=== PATIENT | female | born 1970 | race Two or more races ===

== ENCOUNTER 2018-01-18 20:00 | Emergency (ER) | payer SELFPAY ==
[~2018-01-18] VITALS: Ht 162.6 cm; Wt 79.4 kg
[~2018-01-18 20:00] MED LIST: APRESOLINE10 MG ORAL; CIPRO500 MG PO; CIPROFLOXACIN500 M2 ORAL; COLACE100 MG ORAL; COREG6.25 MG ORAL; FLOMAX0.4 MG ORAL; HYDROCHLOROTHIA25 MG ORAL; IBUPROFEN600 MG ORAL; K-TAB10 MEQ PO; LISINOPRIL10 MG ORAL; METRONIDAZOLE500 MG ORAL; NORCO 5-325 TA1 EACH ORAL; NORCO 5-325 TA1 EACH PO; OMEPRAZOLE20 M3 ORAL; ONDANSETRON ODT4 MG ORAL; SENNA8.6 M3 PO; SLEEP AID25 M1 PO; SUMATRIPTAN SUC50 MG PO; SYNTHROID25 MCG ORAL; TENORMIN25 MG ORAL; TOPAMAX25 MG ORAL; TRAMADOL HCL50 MG ORAL
[2018-01-18 20:22] VITALS: BP 184/117
[2018-01-18] MEDS ORDERED: Isovue-300 100ml vial INJ PRN (21:00)
--- NOTE | 2018-01-18 21:06 | Emergency Room Report ---
History of Present Illness General Chief Complaint: Abdominal Pain Source: Patient Present Illness HPI Mrs. Ho is a 47 yo female who presents with severe generalized abdominal pain beginning this afternoon. Pain is aching and sharp with radiation to the back. Gradual onset. Pain is worse with ambulation. Patient has severe distention of abdomen. Last bowel movement was today. One episode of vomiting. Mild headache. She has history of hypertension. History of thyroidectomy, appendectomy, bilateral nephrectomy. Has not had menstrual bleeding in four years then recently had vaginal bleeding. Pain is 9/10 in abdomen. Allergies: Coded Allergies: MORPHINE (Verified Allergy, Severe, Shortness of Breath, 11/14/15) rash, swelling of tounge, and SOB Patient History Past Medical History: see triage record, old chart reviewed Past Surgical History: other - as per HPI Social History: Reports: drug use - according to EMR Last Menstrual Period: na Now: No Reviewed Nursing Documentation: PMH: Agreed; PSxH: Agreed Nursing Documentation-PMH Past Medical History: No History, Except For Hx Hypertension: Yes Hx Cancer: Yes - THYROIDECTOMY Hx Gastrointestinal Problems: No Hx Cerebrovascular Accident: No - KIDNEY STONES Review of Systems Constitutional: Denies: fever, malaise Gastrointestinal: Reports: abdominal pain, nausea, vomiting Neurological: Reports: headache All Other Systems: negative except mentioned in HPI Physical Exam Vital Signs Date Time Temp Pulse Resp B/P (MAP) Pulse Ox O2 Delivery O2 Flow Rate FiO2 01/18/18 20:33 98.1 91 18 215/150 98 Room Air Sp02 EP Interpretation: reviewed, normal General Appearance: no apparent distress, alert, GCS 15, non-toxic, mild distress, other - anxious, appears in severe pain Head: normocephalic, atraumatic Eyes: bilateral eye normal inspection ENT: hearing grossly normal, normal pharynx, no angioedema, normal voice Neck: full range of motion, supple/symm/no masses Respiratory: chest non-tender, lungs clear, normal breath sounds, speaking full sentences Cardiovascular #1: regular rate, rhythm, no edema Cardiovascular #2: 2+ dorsalis pedis (R), 2+ dorsalis pedis (L) Gastrointestinal: non tender, abnormal bowel sounds, distended, guarding Musculoskeletal: gait/station normal, normal range of motion, non-tender, calf tenderness Neurologic: alert, oriented x3, responsive, motor strength/tone normal, sensory intact, speech normal Psychiatric: judgement/insight normal, memory normal, anxious Skin: normal color, no rash, warm/dry, well hydrated Medical Decision Making Diagnostic Impression: Primary Impression: Hypertensive urgency Additional Impressions: Abdominal pain Constipation ER Course constipation leading to distention and abd pain, rx: golytely, no evidence of peritonitis or bowel obstruction, repeat bp 150/[address]/MRI/US Diagnostic Results CT/MRI/US Diagnostic Results : Impression vaginal cyst, persistent small renal stone, renal cysts no change, large amount of stool Last Vital Signs Date Time Temp Pulse Resp B/P (MAP) Pulse Ox O2 Delivery O2 Flow Rate FiO2 01/18/18 20:33 98.1 91 18 215/150 98 Room Air Patience Scruggs MD Jan 18, 2018 21:06
[2018-01-18 21:11] LABS: EOSINOPHILS % (AUTO) 3.2 % (0.0-3.0); HEMATOCRIT 40.1 % (37.0-47.0); HEMOGLOBIN 14.1 G/DL (12.0-16.0); LYMPHOCYTES % (AUTO) 31.3 % (20.0-45.0); MEAN CORPUSCULAR VOLUME 82 FL (80-99); MONOCYTES % (AUTO) 6.4 % (1.0-10.0); NEUTROPHILS % (AUTO) 58.1 % (45.0-75.0); PLATELET COUNT 414 K/UL (150-450); RED BLOOD COUNT 4.87 M/UL (4.20-5.40); RED CELL DISTRIBUTION WIDTH 12.2 % (11.6-14.8); WHITE BLOOD COUNT 10.2 K/UL (4.8-10.8)
[2018-01-18 21:13] LABS: APPEARANCE,URINE CLEAR; BILIRUBIN, URINE NEGATIVE (NEGATIVE); GLUCOSE, URINE (UA) NEGATIVE (NEGATIVE); KETONES,URINE NEGATIVE (NEGATIVE); LEUKOCYTE ESTERASE ,URINE 1+ (NEGATIVE); NITRITE,URINE NEGATIVE (NEGATIVE); PH,URINE 6 (4.5-8.0); PROTEIN,URINE 2+ (NEGATIVE); UROBILINOGEN,URINE NORMAL MG/DL (0.0-1.0)
[2018-01-18 21:14] LABS: COLOR,URINE YELLOW
[2018-01-18] MEDS ORDERED: HYDROmorphone 1mg/ml Carpuject IVP ONE ×2 (21:15→23:00)
[2018-01-18 21:29] LABS: ANION GAP 6 mmol/L (5-15); BLOOD UREA NITROGEN 15 mg/dL (7-18); CALCIUM 9.1 MG/DL (8.5-10.1); CARBON DIOXIDE 30 MMOL/L (21-32); CHLORIDE 106 MMOL/L (98-107); POTASSIUM 3.5 MMOL/L (3.5-5.1); SODIUM 142 MMOL/L (136-145)
[2018-01-18 21:33] LABS: ALANINE AMINOTRANSFERASE 45 U/L (12-78); ALBUMIN 3.8 G/DL (3.4-5.0); ALBUMIN/GLOBULIN RATIO 0.8 (1.0-2.7); ALKALINE PHOSPHATASE 99 U/L (46-116); ASPARTATE AMINO TRANSFERASE 22 U/L (15-37); BILIRUBIN,TOTAL 0.4 MG/DL (0.2-1.0)
[2018-01-18] MEDS ORDERED: GOLYTELY SOLU4000 ML PO (22:43)
[2018-01-18 22:54] VITALS: BP 215/150
--- NOTE | 2018-01-19 09:39 | Diagnostic Imaging Report ---
Indication: Abdominal pain Technique: Continuous helical transaxial imaging of the abdomen and pelvis was obtained from the lung bases to the pubic symphysis during intravenous contrast administration. Coronal 2-D reformats were also obtained. Study obtained in a Siemens sensation [address] Automatic Exposure Control was utilized. Total Dose length Product (DLP): 905.[address] Dose Index Volume (CTDIvol): 17.05 mGy Comparison: 06/08/2015 Findings: Partial visualization of the right breast implant noted. The lung bases are clear. Small hiatal hernia noted. Diffuse low-attenuation of the liver demonstrated consistent with fatty infiltration. The gallbladder and spleen, pancreas appear unremarkable. There are small hypodensities within the kidneys likely cysts although some are too small to characterize. Appendectomy noted. No free fluid or free air identified. Uterus noted. Urinary bladder is nondistended. In the left vaginal region there is a ovoid cystic focus measuring 2.5 x 1.2 cm unchanged from the last CT examination. IMPRESSION: Fatty liver. Renal cysts. Some are too small to characterize adequately Status post appendectomy Left-sided vaginal cyst nonspecific unchanged from 2016. The CT scanner at [facility] is accredited by the [employer] and the scans are performed using dose optimization techniques as appropriate to a performed exam including Automatic Exposure control.
== END 2018-01-18 22:54 | disposition home or self-care (01) ==
LOC: EMR 21:32
DX: I16.0 Hypertensive urgency (principal); R10.84 Generalized abdominal pain; K59.00 Constipation, unspecified; I10 Essential (primary) hypertension; Z85.850 Personal history of malignant neoplasm of thyroid; Z98.890 Other specified postprocedural states; Z87.442 Personal history of urinary calculi; Z88.5 Allergy status to narcotic agent
CPT/HCPCS: 36415; 74177; 80053; 81003; 83690; 84702; 85025; 87086; 96374; 96375; 99284; J1170; J2405; Q9967

== ENCOUNTER 2018-08-27 05:46 | Inpatient (IN) | payer MEDICAID ==
[2018-08-27] VITALS (8 sets, daily range): BP systolic 121–147; BP diastolic 69–109
[~2018-08-27] VITALS: Ht 162.6 cm; Wt 89.8 kg
[~2018-08-27 05:46] MED LIST changes: +GOLYTELY SOLU4000 ML PO
[2018-08-27] MEDS ORDERED: Ipratropium 0.02% Inh Soln 2.5ml UD HHN ONE (06:15)
[2018-08-27] MEDS ORDERED: Albuterol ud Inhalation HHN ONE (06:15)
[2018-08-27] MEDS ORDERED: Solu-MEDROL 125mg Inj IVP ONE (06:15)
[2018-08-27 06:26] LABS: EOSINOPHILS % (AUTO) 3.5 % (0.0-3.0); HEMATOCRIT 41.5 % (37.0-47.0); MEAN CORPUSCULAR VOLUME 79 FL (80-99); MONOCYTES % (AUTO) 8.4 % (1.0-10.0); NEUTROPHILS % (AUTO) 68.1 % (45.0-75.0); PLATELET COUNT 506 K/UL (150-450); RED BLOOD COUNT 5.24 M/UL (4.20-5.40); RED CELL DISTRIBUTION WIDTH 12.6 % (11.6-14.8); WHITE BLOOD COUNT 13.6 K/UL (4.8-10.8)
[2018-08-27 06:38] LABS: INR 0.9 (0.9-1.1)
[2018-08-27 06:39] LABS: ANION GAP 11 mmol/L (5-15); BLOOD UREA NITROGEN 14 mg/dL (7-18); CARBON DIOXIDE 27 MMOL/L (21-32); CHLORIDE 103 MMOL/L (98-107); CREATININE 0.8 MG/DL (0.55-1.30); POTASSIUM 4.2 MMOL/L (3.5-5.1); SODIUM 141 MMOL/L (136-145)
[2018-08-27] MEDS ORDERED: EPINEPHrine 1mg/1ml Amp IM ONE ×2 (06:45→09:00)
[2018-08-27] MEDS ORDERED: Lidocaine 1% MPF 10mg/ml 5ml HHN ONE (06:45)
[2018-08-27 06:50] LABS: ALANINE AMINOTRANSFERASE 29 U/L (12-78); ALBUMIN 4.1 G/DL (3.4-5.0); ALBUMIN/GLOBULIN RATIO 0.9 (1.0-2.7); ALKALINE PHOSPHATASE 100 U/L (46-116); ASPARTATE AMINO TRANSFERASE 27 U/L (15-37); BILIRUBIN,TOTAL 0.6 MG/DL (0.2-1.0); CREATINE KINASE 171 U/L (26-308)
--- NOTE | 2018-08-27 07:03 | Emergency Room Report ---
History of Present Illness General Chief Complaint: Dyspnea/Respdistress Source: Patient (Jw Kay MD) Present Illness HPI Presents with respiratory distress and wheezing. She has been sick since Thursday and today is . She denies any history of asthma in the past. She is been wheezing and coughing. Complains about a headache with a cough. She also has crusting of the left eye. She is reported fevers but not documented them. She never been ill in this way. No prior history of smoking. There is no chest pain. She has had some vomiting after coughing. She has had a headache. This is throbbing and worse with coughing. She rates this pain as 8/10. The patient is status post thyroidectomy. Not . No calf swelling or edema. Denies abdominal pain, rashes. (Jw Kay MD) Allergies: Coded Allergies: MORPHINE (Verified Allergy, Severe, Shortness of Breath, 08/27/18) rash, swelling of tounge, and SOB Patient History Past Medical History: see triage record Social History: Denies: smoking, drug use - In the past Social History Narrative Now: No : 8 Para: 5 Reviewed Nursing Documentation: PMH: Agreed; PSxH: Agreed (Jw Kay MD) Nursing Documentation-PMH Hx Hypertension: Yes Hx Cancer: Yes - THYROIDECTOMY Hx Gastrointestinal Problems: No Hx Cerebrovascular Accident: No - KIDNEY STONES (Jw Kay MD) Review of Systems All Other Systems: negative except mentioned in HPI (Jw Kay MD) Physical Exam Vital Signs Date Time Temp Pulse Resp B/P (MAP) Pulse Ox O2 Delivery O2 Flow Rate FiO2 08/27/18 05:57 99.1 97 24 149/105 (120) 96 Room Air 08/27/18 06:18 21 Sp02 EP Interpretation: reviewed, normal General Appearance: well appearing, GCS 15, non-toxic, moderate distress Head: normocephalic, atraumatic Eyes: left eye other - yellow crusting ENT: moist mucus membranes Neck: supple Respiratory: accessory muscle use, wheezing, expiration, inspiration Cardiovascular #1: regular rate, rhythm, no edema Cardiovascular #2: 2+ radial (R) Gastrointestinal: normal inspection, non tender, no mass, non-distended, decreased bowel sounds Genitourinary: no CVA tenderness Musculoskeletal: back normal, gait/station normal, normal range of motion, no calf tenderness, Jacob's Sign negative Neurologic: alert, oriented x3, grossly normal Psychiatric: mood/affect normal Skin: normal inspection, warm/dry (Jw Kay MD) Procedures Critical Care Time Critical Care Time Total Critical Care Time: 60 min bedside evaluation and treatment excludes procedures (EKG). Reason for critical care: respiratory distress Possible complications: hypotension, hypertension, MD, shock, arrhythmias, metabolic acidosis, end organ damage, respiratory failure. Interventions: breathing treatments, solumedrol, epinephrine, lidocaine, magnesium, repeat evaluations Course: Patient presents with respiratory distress with wheezing. Needed treatment with bronchodilators and Solu-Medrol. Minimal improvement. Epinephrine given IM. Minimal improvement. Lidocaine breathing treatment for coughing. Some decrease in the cough. Chest x-ray no infiltrates. Magnesium and repeat breathing treatments given. Improvement but still bronchospasm. Consultation with co-treating emergency physician. Consultations: nursing staff, EMS, family, respiratory therapy, admitting physician Performed by: Dr. Kay Tolerated well condition = critical (Jw Kay MD) Medical Decision Making Diagnostic Impression: Primary Impression: Status asthmaticus Qualified Codes: J45.52 - Severe persistent asthma with status asthmaticus Additional Impression: Conjunctivitis Qualified Codes: H10.022 - Other mucopurulent conjunctivitis, left eye ER Course Patient presents with respiratory distress and wheezing. Differential includes status asthmaticus, pneumothorax, pneumonia, pulmonary embolus, myocardial infarction amongst others. Patient was evaluated with EKG, chest x-ray and labs. Patient needs immediate breathing treatments aggressively also Solu- Medrol. Blood cultures will be obtained and there will be a low threshold for starting antibiotics. EKG with sinus rhythm left axis deviation voltage criteria for LVH. Leukocytosis without left shift. Eosinophilia. CMP normal. Initial lactate normal. Patient still with significant respiratory distress after DuoNeb. 3 had been ordered however it appears that only one was given. Epinephrine is ordered IM as well as magnesium. Solu-Medrol had just been given. Chest x-ray with poor inspiration no infiltrates. Improving post epi, lidocaine. Magnesium infusing. 7:25 Robitussin with codeine given for headache and cough. Signed out to Dr. Mccarty. Laboratory Tests Test 08/27/18 06:10 08/27/18 08:30 08/27/18 09:19 White Blood Count 13.6 K/UL (4.8-10.8) H Red Blood Count 5.24 M/UL (4.20-5.40) Hemoglobin 14.0 G/DL (12.0-16.0) Hematocrit 41.5 % (37.0-47.0) Mean Corpuscular Volume 79 FL (80-99) L Mean Corpuscular Hemoglobin 26.7 PG (27.0-31.0) L Mean Corpuscular Hemoglobin Concent 33.7 G/DL (32.0-36.0) Red Cell Distribution Width 12.6 % (11.6-14.8) Platelet Count 506 K/UL (150-450) H Mean Platelet Volume 5.2 FL (6.5-10.1) L Neutrophils (%) (Auto) 68.1 % (45.0-75.0) Lymphocytes (%) (Auto) 19.0 % (20.0-45.0) L Monocytes (%) (Auto) 8.4 % (1.0-10.0) Eosinophils (%) (Auto) 3.5 % (0.0-3.0) H Basophils (%) (Auto) 1.0 % (0.0-2.0) Prothrombin Time 10.0 SEC (9.30-11.50) Prothrombin Time INR 0.9 (0.9-1.1) PTT 30 SEC (23-33) Sodium Level 141 MMOL/L (136-145) Potassium Level 4.2 MMOL/L (3.5-5.1) Chloride Level 103 MMOL/L (98-107) Carbon Dioxide Level 27 MMOL/L (21-32) Anion Gap 11 mmol/L (5-15) Blood Urea Nitrogen 14 mg/dL (7-18) Creatinine 0.8 MG/DL (0.55-1.30) Estimate Glomerular Filtration Rate > 60 mL/min (>60) Glucose Level 116 MG/DL (74-106) H Lactic Acid Level 1.60 mmol/L (0.4-2.0) Calcium Level 9.0 MG/DL (8.5-10.1) Total Bilirubin 0.6 MG/DL (0.2-1.0) Aspartate Amino Transferase (AST) 27 U/L (15-37) Alanine Aminotransferase (ALT) 29 U/L (12-78) Alkaline Phosphatase 100 U/L (46-116) Total Creatine Kinase 171 U/L (26-308) Troponin I 0.000 ng/mL (0.000-0.056) Pro-B-Type Natriuretic Peptide 24 pg/mL (0-125) Total Protein 8.7 G/DL (6.4-8.2) H Albumin 4.1 G/DL (3.4-5.0) Globulin 4.6 g/dL Albumin/Globulin Ratio 0.9 (1.0-2.7) L Thyroid Stimulating Hormone (TSH) 1.388 uiU/mL (0.358-3.740) Urine Color Pale yellow Urine Appearance Clear Urine pH 6 (4.5-8.0) Urine Specific [place] 1.015 (1.005-1.035) Urine Protein 2+ (NEGATIVE) H Urine Glucose (UA) Negative (NEGATIVE) Urine Ketones 1+ (NEGATIVE) H Urine Blood 5+ (NEGATIVE) H Urine Nitrite Negative (NEGATIVE) Urine Bilirubin Negative (NEGATIVE) Urine Urobilinogen Normal MG/DL (0.0-1.0) Urine Leukocyte Esterase 1+ (NEGATIVE) H Urine RBC 10-15 /HPF (0 - 2) H Urine WBC 0-2 /HPF (0 - 2) Urine Squamous Epithelial Cells Few /LPF (NONE/OCC) Urine Bacteria Occasional /HPF (NONE) Urine HCG, Qualitative Negative (NEGATIVE) Arterial Blood pH 7.403 (7.350-7.450) Arterial Blood Partial Pressure CO2 42.4 mmHg (35.0-45.0) Arterial Blood Partial Pressure O2 265.6 mmHg (75.0-100.0) H Arterial Blood HCO3 25.9 mmol/L (22.0-26.0) Arterial Blood Oxygen Saturation 99.0 % (95-100) Arterial Blood Base Excess 0.9 (-2-2) Dontae Test Positive (Jw Kay MD) ER Course This patient was turned over to me by Dr. Kay. The patient had presented with bronchospasm and wheezing. She had been given albuterol 15 mg, Solu-Medrol , magnesium, IM epinephrine and had improved at the time of turnover to myself. The patient was comfortable with oxygen saturations in the high 90s for most of her ED course. However, she became dyspneic again and diaphoretic. Her lung exam was very diminished consistent with severe bronchospasm. She did have some stridor in the upper airways. She was given 5 more milligrams of albuterol to total 20 mg of albuterol. She was placed on BiPAP to improve her work of breathing. She did respond to the albuterol with oxygen saturations at 100%. She was sweaty and diaphoretic but able to speak short sentences. The patient was given another dose of 0.3 mg IM epinephrine. She is upgraded to the ICU. Dr. Perez of pulmonology consulted in the emergency department and together we decided she would not need rapid sequence intubation at this time and that she could go to the ICU on continuous albuterol and BiPAP. This patient is critically ill. This patient required complex medical decision- making, aggressive intervention, extensive laboratory workup and monitoring. Critical care time: 40 minutes. Laboratory Tests Test 08/27/18 06:10 08/27/18 08:30 White Blood Count 13.6 K/UL (4.8-10.8) H Red Blood Count 5.24 M/UL (4.20-5.40) Hemoglobin 14.0 G/DL (12.0-16.0) Hematocrit 41.5 % (37.0-47.0) Mean Corpuscular Volume 79 FL (80-99) L Mean Corpuscular Hemoglobin 26.7 PG (27.0-31.0) L Mean Corpuscular Hemoglobin Concent 33.7 G/DL (32.0-36.0) Red Cell Distribution Width 12.6 % (11.6-14.8) Platelet Count 506 K/UL (150-450) H Mean Platelet Volume 5.2 FL (6.5-10.1) L Neutrophils (%) (Auto) 68.1 % (45.0-75.0) Lymphocytes (%) (Auto) 19.0 % (20.0-45.0) L Monocytes (%) (Auto) 8.4 % (1.0-10.0) Eosinophils (%) (Auto) 3.5 % (0.0-3.0) H Basophils (%) (Auto) 1.0 % (0.0-2.0) Prothrombin Time 10.0 SEC (9.30-11.50) Prothrombin Time INR 0.9 (0.9-1.1) PTT 30 SEC (23-33) Sodium Level 141 MMOL/L (136-145) Potassium Level 4.2 MMOL/L (3.5-5.1) Chloride Level 103 MMOL/L (98-107) Carbon Dioxide Level 27 MMOL/L (21-32) Anion Gap 11 mmol/L (5-15) Blood Urea Nitrogen 14 mg/dL (7-18) Creatinine 0.8 MG/DL (0.55-1.30) Estimate Glomerular Filtration Rate > 60 mL/min (>60) Glucose Level 116 MG/DL (74-106) H Lactic Acid Level 1.60 mmol/L (0.4-2.0) Calcium Level 9.0 MG/DL (8.5-10.1) Total Bilirubin 0.6 MG/DL (0.2-1.0) Aspartate Amino Transferase (AST) 27 U/L (15-37) Alanine Aminotransferase (ALT) 29 U/L (12-78) Alkaline Phosphatase 100 U/L (46-116) Total Creatine Kinase 171 U/L (26-308) Troponin I 0.000 ng/mL (0.000-0.056) Pro-B-Type Natriuretic Peptide 24 pg/mL (0-125) Total Protein 8.7 G/DL (6.4-8.2) H Albumin 4.1 G/DL (3.4-5.0) Globulin 4.6 g/dL Albumin/Globulin Ratio 0.9 (1.0-2.7) L Thyroid Stimulating Hormone (TSH) 1.388 uiU/mL (0.358-3.740) Urine Color Pale yellow Urine Appearance Clear Urine pH 6 (4.5-8.0) Urine Specific [place] 1.015 (1.005-1.035) Urine Protein 2+ (NEGATIVE) H Urine Glucose (UA) Negative (NEGATIVE) Urine Ketones 1+ (NEGATIVE) H Urine Blood 5+ (NEGATIVE) H Urine Nitrite Negative (NEGATIVE) Urine Bilirubin Negative (NEGATIVE) Urine Urobilinogen Normal MG/DL (0.0-1.0) Urine Leukocyte Esterase 1+ (NEGATIVE) H Urine RBC 10-15 /HPF (0 - 2) H Urine WBC 0-2 /HPF (0 - 2) Urine Squamous Epithelial Cells Few /LPF (NONE/OCC) Urine Bacteria Occasional /HPF (NONE) Urine HCG, Qualitative Negative (NEGATIVE) (Colianno,Kasey M. DO) EKG Diagnostic Results Rate: normal Rhythm: NSR ST Segments: no acute changes - Dema deviation LVH (Jw Kay MD) Rhythm Strip Diag. Results EP Interpretation: yes Rhythm: NSR, no PVC's, no ectopy (Jw Kay MD) Chest X-Ray Diagnostic Results Chest X-Ray Diagnostic Results : Chest X-Ray Ordered: Yes # of Views/Limited/Complete: 1 View Indication: Shortness of Breath EP Interpretation: Yes Interpretation: no consolidation, no effusion, no pneumothorax, other - Poor inspiration Impression: Other Electronically Signed by: Electronically signed by Jw Kay MD (Jw Kay MD) Chest X-Ray Diagnostic Results : Chest X-Ray Ordered: Yes # of Views/Limited/Complete: 1 View Indication: Shortness of Breath EP Interpretation: Yes Interpretation: other - Low lung volumes. No opacities. Impression: Other - See above Electronically Signed by: Kasey Mari DO (Kasey Mari DO) Last Vital Signs Date Time Temp Pulse Resp B/P (MAP) Pulse Ox O2 Delivery O2 Flow Rate FiO2 08/27/18 11:00 Bi-pap 08/27/18 10:30 86 20 133/80 96 21 08/27/18 09:42 99.0 08/27/18 08:00 9.0 Status: improved (Jw Kay MD) Disposition: ADMITTED INPATIENT Condition: Critical Jw Kay MD Aug 27, 2018 07:03 Kasey Mari DO Aug 27, 2018 09:17
[2018-08-27] MEDS: Albuterol ud Inhalation HHN SCH ×12 (07:07→19:02)
[2018-08-27] MEDS ORDERED: guaiFENesin w/Codeine 5ml Liq ud ORAL STA (07:25)
[2018-08-27] MEDS ORDERED: Isovue-300 100ml vial INJ PRN (08:15)
[2018-08-27 08:51] LABS: APPEARANCE,URINE CLEAR; BILIRUBIN, URINE NEGATIVE (NEGATIVE); COLOR,URINE PALE YELLOW; GLUCOSE, URINE (UA) NEGATIVE (NEGATIVE); KETONES,URINE 1+ (NEGATIVE); LEUKOCYTE ESTERASE ,URINE 1+ (NEGATIVE); NITRITE,URINE NEGATIVE (NEGATIVE); PH,URINE 6 (4.5-8.0); PROTEIN,URINE 2+ (NEGATIVE); UROBILINOGEN,URINE NORMAL MG/DL (0.0-1.0)
[2018-08-27] MEDS ORDERED: EPINEPHrine 1mg/1ml Amp ONE (08:53)
[2018-08-27] MEDS ORDERED: Promethazine/Codeine 5ml UD ORAL PRN (09:30)
[2018-08-27] MEDS ORDERED: LORazepam Inj 2mg/ml 1ml IV PRN (09:30)
[2018-08-27] MEDS ORDERED: Nitroglycerin Subl 0.4mg tab SL PRN (09:30)
--- NOTE | 2018-08-27 09:32 | Pulmonolgy Critical Care Note ---
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 Discussed with: nurses, consultants Critical Care - Objective Last 24 Hour Vital Signs Date Time Temp Pulse Resp B/P (MAP) Pulse Ox O2 Delivery O2 Flow Rate FiO2 08/27/18 07:40 87 22 146/109 100 Simple Mask 9.0 08/27/18 07:22 98.4 86 23 147/100 99 Simple Mask 8.0 52 08/27/18 07:20 87 22 Simple Mask 9.0 08/27/18 07:07 21 08/27/18 07:07 89 24 100 Room Air 21 08/27/18 06:50 93 24 100 Room Air 100 08/27/18 06:50 21 08/27/18 06:50 93 28 100 Room Air 21 08/27/18 06:18 86 32 97 Room Air 21 08/27/18 05:57 99.1 97 24 149/105 (120) 96 Room Air Status: awake HEENT: atraumatic Lungs: clear Heart: HR/BP stable Abdomen: soft, active bowel sounds Extremities: edema Critical Care - Subjective ROS Limited/Unobtainable: Yes Interval Events: 48 year old presented to ER with shortness of breath and wheezing. admitted to ICU for respiratory failure. FI02: 52 Sputum Amount: None Labs: Laboratory Tests Test 08/27/18 06:10 08/27/18 08:30 White Blood Count 13.6 K/UL (4.8-10.8) H Red Blood Count 5.24 M/UL (4.20-5.40) Hemoglobin 14.0 G/DL (12.0-16.0) Hematocrit 41.5 % (37.0-47.0) Mean Corpuscular Volume 79 FL (80-99) L Mean Corpuscular Hemoglobin 26.7 PG (27.0-31.0) L Mean Corpuscular Hemoglobin Concent 33.7 G/DL (32.0-36.0) Red Cell Distribution Width 12.6 % (11.6-14.8) Platelet Count 506 K/UL (150-450) H Mean Platelet Volume 5.2 FL (6.5-10.1) L Neutrophils (%) (Auto) 68.1 % (45.0-75.0) Lymphocytes (%) (Auto) 19.0 % (20.0-45.0) L Monocytes (%) (Auto) 8.4 % (1.0-10.0) Eosinophils (%) (Auto) 3.5 % (0.0-3.0) H Basophils (%) (Auto) 1.0 % (0.0-2.0) Prothrombin Time 10.0 SEC (9.30-11.50) Prothromb Time International Ratio 0.9 (0.9-1.1) Activated Partial Thromboplast Time 30 SEC (23-33) Sodium Level 141 MMOL/L (136-145) Potassium Level 4.2 MMOL/L (3.5-5.1) Chloride Level 103 MMOL/L (98-107) Carbon Dioxide Level 27 MMOL/L (21-32) Anion Gap 11 mmol/L (5-15) Blood Urea Nitrogen 14 mg/dL (7-18) Creatinine 0.8 MG/DL (0.55-1.30) Estimat Glomerular Filtration Rate > 60 mL/min (>60) Glucose Level 116 MG/DL (74-106) H Lactic Acid Level 1.60 mmol/L (0.4-2.0) Calcium Level 9.0 MG/DL (8.5-10.1) Total Bilirubin 0.6 MG/DL (0.2-1.0) Aspartate Amino Transf (AST/SGOT) 27 U/L (15-37) Alanine Aminotransferase (ALT/SGPT) 29 U/L (12-78) Alkaline Phosphatase 100 U/L (46-116) Total Creatine Kinase 171 U/L (26-308) Troponin I 0.000 ng/mL (0.000-0.056) Pro-B-Type Natriuretic Peptide 24 pg/mL (0-125) Total Protein 8.7 G/DL (6.4-8.2) H Albumin 4.1 G/DL (3.4-5.0) Globulin 4.6 g/dL Albumin/Globulin Ratio 0.9 (1.0-2.7) L Thyroid Stimulating Hormone (TSH) 1.388 uiU/mL (0.358-3.740) Urine Color Pale yellow Urine Appearance Clear Urine pH 6 (4.5-8.0) Urine Specific [place] 1.015 (1.005-1.035) Urine Protein 2+ (NEGATIVE) H Urine Glucose (UA) Negative (NEGATIVE) Urine Ketones 1+ (NEGATIVE) H Urine Blood 5+ (NEGATIVE) H Urine Nitrite Negative (NEGATIVE) Urine Bilirubin Negative (NEGATIVE) Urine Urobilinogen Normal MG/DL (0.0-1.0) Urine Leukocyte Esterase 1+ (NEGATIVE) H Urine RBC 10-15 /HPF (0 - 2) H Urine WBC 0-2 /HPF (0 - 2) Urine Squamous Epithelial Cells Few /LPF (NONE/OCC) Urine Bacteria Occasional /HPF (NONE) Urine HCG, Qualitative Negative (NEGATIVE) Sanjana Perez MD Aug 27, 2018 09:32
[2018-08-27] MEDS ORDERED: CARVEDILOL12.5 MG ORAL (10:55)
[2018-08-27] MEDS: Solu-MEDROL 125mg Inj IV SCH ×2 (12:44→17:45)
[2018-08-27] MEDS: Zoysn 3.37gm in NS 100ML IVPB SCH ×2 (12:45→22:19)
[2018-08-27] MEDS ORDERED: Piperacillin/Tazobactam 2.25 GM in D5W 55 ML IV SCH (14:00)
[2018-08-27] MEDS: Albuterol/Ipratropium 3ml neb HHN PRN ×2 (14:26→23:01)
--- NOTE | 2018-08-27 14:39 | Cardiac Electrophysiology PN ---
Subjective Subjective [id number] Objective Last 24 Hour Vital Signs Date Time Temp Pulse Resp B/P (MAP) Pulse Ox O2 Delivery O2 Flow Rate FiO2 08/27/18 14:25 87 24 98 Facial 40 08/27/18 12:53 86 20 98 Facial 40 08/27/18 12:00 94 08/27/18 12:00 21 08/27/18 12:00 Bi-pap 08/27/18 11:00 Bi-pap 08/27/18 10:30 86 20 133/80 96 Bi-pap 21 08/27/18 10:15 83 20 100 Facial 40 08/27/18 09:42 99.0 89 24 122/92 98 Bi-pap 21 08/27/18 09:35 84 20 100 Room Air 21 08/27/18 09:18 21 08/27/18 09:18 88 22 100 Room Air 21 08/27/18 09:16 89 22 100 Room Air 21 08/27/18 09:07 40 08/27/18 09:05 88 24 100 Facial 40 08/27/18 08:59 21 08/27/18 08:59 91 25 100 Room Air 21 08/27/18 08:58 91 24 100 Room Air 21 08/27/18 08:44 21 08/27/18 08:44 92 24 100 Room Air 21 08/27/18 08:00 82 20 137/80 95 Simple Mask 9.0 08/27/18 07:40 87 22 146/109 100 Simple Mask 9.0 08/27/18 07:22 98.4 86 23 147/100 99 Simple Mask 8.0 52 08/27/18 07:21 21 08/27/18 07:21 89 26 100 Room Air 21 08/27/18 07:20 87 22 Simple Mask 9.0 08/27/18 07:07 21 08/27/18 07:07 89 24 100 Room Air 21 08/27/18 06:50 93 24 100 Room Air 100 08/27/18 06:50 21 08/27/18 06:50 93 28 100 Room Air 21 08/27/18 06:18 86 32 97 Room Air 21 08/27/18 05:57 99.1 97 24 149/105 (120) 96 Room Air Laboratory Tests Test 08/27/18 06:10 08/27/18 08:30 08/27/18 09:19 White Blood Count 13.6 K/UL (4.8-10.8) H Red Blood Count 5.24 M/UL (4.20-5.40) Hemoglobin 14.0 G/DL (12.0-16.0) Hematocrit 41.5 % (37.0-47.0) Mean Corpuscular Volume 79 FL (80-99) L Mean Corpuscular Hemoglobin 26.7 PG (27.0-31.0) L Mean Corpuscular Hemoglobin Concent 33.7 G/DL (32.0-36.0) Red Cell Distribution Width 12.6 % (11.6-14.8) Platelet Count 506 K/UL (150-450) H Mean Platelet Volume 5.2 FL (6.5-10.1) L Neutrophils (%) (Auto) 68.1 % (45.0-75.0) Lymphocytes (%) (Auto) 19.0 % (20.0-45.0) L Monocytes (%) (Auto) 8.4 % (1.0-10.0) Eosinophils (%) (Auto) 3.5 % (0.0-3.0) H Basophils (%) (Auto) 1.0 % (0.0-2.0) Prothrombin Time 10.0 SEC (9.30-11.50) Prothromb Time International Ratio 0.9 (0.9-1.1) Activated Partial Thromboplast Time 30 SEC (23-33) Sodium Level 141 MMOL/L (136-145) Potassium Level 4.2 MMOL/L (3.5-5.1) Chloride Level 103 MMOL/L (98-107) Carbon Dioxide Level 27 MMOL/L (21-32) Anion Gap 11 mmol/L (5-15) Blood Urea Nitrogen 14 mg/dL (7-18) Creatinine 0.8 MG/DL (0.55-1.30) Estimat Glomerular Filtration Rate > 60 mL/min (>60) Glucose Level 116 MG/DL (74-106) H Lactic Acid Level 1.60 mmol/L (0.4-2.0) Calcium Level 9.0 MG/DL (8.5-10.1) Total Bilirubin 0.6 MG/DL (0.2-1.0) Aspartate Amino Transf (AST/SGOT) 27 U/L (15-37) Alanine Aminotransferase (ALT/SGPT) 29 U/L (12-78) Alkaline Phosphatase 100 U/L (46-116) Total Creatine Kinase 171 U/L (26-308) Troponin I 0.000 ng/mL (0.000-0.056) Pro-B-Type Natriuretic Peptide 24 pg/mL (0-125) Total Protein 8.7 G/DL (6.4-8.2) H Albumin 4.1 G/DL (3.4-5.0) Globulin 4.6 g/dL Albumin/Globulin Ratio 0.9 (1.0-2.7) L Thyroid Stimulating Hormone (TSH) 1.388 uiU/mL (0.358-3.740) Urine Color Pale yellow Urine Appearance Clear Urine pH 6 (4.5-8.0) Urine Specific Ivel 1.015 (1.005-1.035) Urine Protein 2+ (NEGATIVE) H Urine Glucose (UA) Negative (NEGATIVE) Urine Ketones 1+ (NEGATIVE) H Urine Blood 5+ (NEGATIVE) H Urine Nitrite Negative (NEGATIVE) Urine Bilirubin Negative (NEGATIVE) Urine Urobilinogen Normal MG/DL (0.0-1.0) Urine Leukocyte Esterase 1+ (NEGATIVE) H Urine RBC 10-15 /HPF (0 - 2) H Urine WBC 0-2 /HPF (0 - 2) Urine Squamous Epithelial Cells Few /LPF (NONE/OCC) Urine Bacteria Occasional /HPF (NONE) Urine HCG, Qualitative Negative (NEGATIVE) Arterial Blood pH 7.403 (7.350-7.450) Arterial Blood Partial Pressure CO2 42.4 mmHg (35.0-45.0) Arterial Blood Partial Pressure O2 265.6 mmHg (75.0-100.0) H Arterial Blood HCO3 25.9 mmol/L (22.0-26.0) Arterial Blood Oxygen Saturation 99.0 % (95-100) Arterial Blood Base Excess 0.9 (-2-2) Dontae Test Positive Martell Mehta MD Aug 27, 2018 14:39
[2018-08-27] MEDS ORDERED: cloNIDine 0.2mg Tab ORAL PRN (14:45)
[2018-08-27] MEDS ORDERED: Acetaminophen 650 MG SUPP RECTAL PRN (15:45)
--- NOTE | 2018-08-27 16:31 | Diagnostic Imaging Report ---
Indication: Dyspnea Technique: One view of the chest Comparison: 11/13/2015 Findings: Patient's chin obscures the upper mediastinum. Note that one of the images is anteverted, could not be successfully re-oriented at the time of the exam although temporarily visible in the correct orientation. No acute infiltrates, effusions, or congestion. Inspiration is suboptimal. The heart size is upper limits of normal. No significant interim change Impression: No acute process
[2018-08-27] MEDS: SODIUM CHLORIDE IVPB SCH (17:45)
[2018-08-27] MEDS: AMINOPHYLLINE IVPB SCH (17:45)
[2018-08-27] MEDS: Lisinopril 10mg tab ORAL SCH (18:00)
--- NOTE | 2018-08-27 19:00 | Consultation ---
DATE OF CONSULTATION: 08/27/2018 CARDIOLOGY CONSULTATION CONSULTING PHYSICIAN: Martell Mehta M.D. REFERRING PHYSICIAN: Coy Conley D.O. REASON FOR CONSULTATION: Accelerated hypertension. HISTORY OF PRESENT ILLNESS: The patient is a 48-year-old lady with history of hypertension and severe asthma, presented to the emergency room with respiratory distress and wheezing. The patient has been sick since Thursday. The patient came to the emergency room and was admitted to intensive care unit and was placed on BiPAP. The blood pressure was 180s and a Cardiology consultation was obtained for further evaluation and management. REVIEW OF SYSTEMS: Review of systems was negative other than what is mentioned in the history of present illness. PAST MEDICAL HISTORY: As mentioned above. FAMILY HISTORY: Noncontributory. SOCIAL HISTORY: She lives at home. Does not smoke or drink alcohol. ALLERGIES: She is allergic to morphine. PHYSICAL EXAMINATION: VITAL SIGNS: Show blood pressure of 180/90, pulse is 90, respirations 18, and she is afebrile. HEAD AND NECK: No JVD. Status post thyroidectomy . LUNGS: Coarse rhonchi and wheezes. CARDIOVASCULAR: Regular S1-S2 and tachycardic. ABDOMEN: Obese. EXTREMITIES: No pitting edema. LABORATORY AND DIAGNOSTIC DATA: Her labs show white count of 13.6, hemoglobin of 14, hematocrit 41, and platelet count is 506. Sodium is 141, potassium 4.2, BUN 14, creatinine 0.8, glucose of 160. Troponin is negative. INR is 0.9. ASSESSMENT AND PLAN: 1. Accelerated hypertension. This could be brought by the patient's respiratory failure and severe asthma. At home, the patient is on Coreg 12.5 mg b.i.d. but in view of patient's severe asthma it will be discontinued. We will put the patient on Cardizem 60 mg every 6 hours and add p.r.n. clonidine to her medical regimen. 2. Respiratory failure with severe asthma. The patient is on BiPAP, further management by Dr. Perez. 3. History of thyroidectomy, on levothyroxine. 4. Obesity. Thank you very much, Dr. Conley, for allowing me to participate in the care of this patient. Please do not hesitate to contact me for any questions regarding my evaluation. Sincerely, Martell Mehta M.D. DR: Seth JOB#: [id number] CC:
--- NOTE | 2018-08-27 19:45 | History and Physical Report ---
DATE OF ADMISSION: 08/27/2018 SURFACE WATER MANAGER: Sanjana Perez M.D. CHIEF COMPLAINT: Respiratory status asthmaticus and short of breath. BRIEF HISTORY: This is a 48-year-old female, who lives at home with slightly increased progressive shortness of breath, became very weak and short of breath today. I put her on and again admitted to ICU for further care and is slightly anxious in bed, O2 mask in place. No complaint. REVIEW OF SYSTEMS: No chest pain. Positive shortness of breath. No nausea, vomiting, or diarrhea. PAST MEDICAL HISTORY: Asthma, hyperthyroid, and hypertension. PAST SURGICAL HISTORY: Thyroid cancer surgery. MEDICATIONS: Include levothyroxine, heparin, theophylline, Zosyn, methylprednisolone, albuterol, lorazepam, nitroglycerin, and temazepam. ALLERGIES: Morphine. SOCIAL HISTORY: No smoking. No alcohol. No intravenous drug abuse. PHYSICAL EXAMINATION: GENERAL: Slightly anxious in bed, oriented x3, in no acute distress. VITAL SIGNS: Show temperature is 99, pulse 86, respirations 20, and blood pressure 133/80. CARDIOVASCULAR: No murmurs. LUNGS: Poor air exchange. ABDOMEN: Bowel sounds distant. EXTREMITIES: Show no cyanosis, clubbing, or edema. NEUROLOGIC: The patient moves all extremities, slightly weak. LABORATORY AND DIAGNOSTIC DATA: White count 13.6 and platelets 506,000. BMP show glucose 116. Troponin 0.00. Albumin 4.2. TSH 1.388. Urinalysis show 1+ leukocyte esterase. ASSESSMENT: 1. Status asthmaticus. 2. Shortness of breath. 3. Hypertension. 4. Hyperthyroid. 5. Urinary tract infection. PLAN: 1. O2 and pulmonary treatment. 2. Antibiotics per Infectious Disease. 3. PT and dietary evaluation. 4. CBC and BMP in the morning. 5. Resume home medications. Coy Conley D.O. DR: KG JOB#: [id number] CC:
[2018-08-27] MEDS: Enalaprilat 2.5mg/2ml Inj IV SCH (20:39)
[2018-08-27] MEDS: Heparin 5000 units/ml inj SUBQ SCH (20:41)
[2018-08-27] MEDS ORDERED: Theophylline ER 100mg ORAL SCH (21:00)
[2018-08-27] MEDS: dilTIAZem HCl 60mg tab ORAL SCH (22:18)
[2018-08-28] VITALS (20 sets, daily range): BP systolic 104–153; BP diastolic 61–114
[2018-08-28] MEDS: Solu-MEDROL 125mg Inj IV SCH ×5 (00:18→23:44)
[2018-08-28] MEDS: Albuterol/Ipratropium 3ml neb HHN PRN (03:17)
[2018-08-28] MEDS: Zoysn 3.37gm in NS 100ML IVPB SCH ×2 (05:44→14:34)
[2018-08-28] MEDS: dilTIAZem HCl 60mg tab ORAL SCH ×3 (05:44→21:04)
[2018-08-28] MEDS: SODIUM CHLORIDE IVPB SCH (05:53)
[2018-08-28] MEDS: AMINOPHYLLINE IVPB SCH (05:53)
[2018-08-28] MEDS ORDERED: Levothyroxine 25mcg tab ORAL SCH (06:30)
[2018-08-28 08:03] LABS: HEMATOCRIT 35.5 % (37.0-47.0); HEMOGLOBIN 11.9 G/DL (12.0-16.0); MEAN CORPUSCULAR VOLUME 80 FL (80-99); PLATELET COUNT 468 K/UL (150-450); RED BLOOD COUNT 4.47 M/UL (4.20-5.40); RED CELL DISTRIBUTION WIDTH 13.1 % (11.6-14.8)
[2018-08-28] MEDS: Albuterol ud Inhalation HHN SCH ×2 (08:19→14:29)
[2018-08-28 08:26] LABS: ANION GAP 12 mmol/L (5-15); BLOOD UREA NITROGEN 24 mg/dL (7-18); CALCIUM 9.1 MG/DL (8.5-10.1); CARBON DIOXIDE 25 MMOL/L (21-32); CHLORIDE 107 MMOL/L (98-107); CREATININE 0.9 MG/DL (0.55-1.30); POTASSIUM 3.2 MMOL/L (3.5-5.1); SODIUM 144 MMOL/L (136-145)
[2018-08-28] MEDS: Enalaprilat 2.5mg/2ml Inj IV SCH (09:00)
[2018-08-28] MEDS: Lisinopril 10mg tab ORAL SCH ×2 (09:07→17:04)
[2018-08-28] MEDS: Heparin 5000 units/ml inj SUBQ SCH ×2 (09:10→21:01)
--- NOTE | 2018-08-28 09:50 | General Progress Note ---
Assessment/Plan Problem List: (1) SOB (shortness of breath) ICD Codes: R06.02 - Shortness of breath SNOMED: 345616176 (2) HTN (hypertension) ICD Codes: I10 - Essential (primary) hypertension SNOMED: 36715192 (3) UTI (urinary tract infection) ICD Codes: N39.0 - Urinary tract infection, site not specified SNOMED: 38315040 (4) Acute respiratory failure ICD Codes: J96.00 - Acute respiratory failure, unspecified whether with hypoxia or hypercapnia SNOMED: 02368655 (5) Status asthmaticus ICD Codes: J45.902 - Unspecified asthma with status asthmaticus SNOMED: 563648115 Qualifiers: Qualified Codes: J45.52 - Severe persistent asthma with status asthmaticus Status: progressing Assessment/Plan: o2 pulm tx abx cbc bmp am Subjective Constitutional: Reports: weakness Respiratory: Reports: shortness of breath Allergies: Coded Allergies: MORPHINE (Verified Allergy, Severe, Shortness of Breath, 08/27/18) rash, swelling of tounge, and SOB All Systems: reviewed and negative except above Subjective o2nc calm in icu Objective Last 24 Hour Vital Signs Date Time Temp Pulse Resp B/P (MAP) Pulse Ox O2 Delivery O2 Flow Rate FiO2 08/28/18 09:07 132/80 08/28/18 09:00 76 20 96 2.0 28 08/28/18 08:19 78 19 100 Nasal Cannula 2.0 28 08/28/18 08:19 30 08/28/18 08:00 2.0 08/28/18 08:00 98.5 83 22 132/80 (97) 100 08/28/18 07:16 78 22 97 2.0 28 08/28/18 07:00 85 23 133/89 (104) 97 08/28/18 06:00 75 18 136/80 (98) 97 08/28/18 05:44 93 126/65 08/28/18 05:00 82 18 138/96 (110) 96 08/28/18 04:39 75 24 95 2.0 28 08/28/18 04:00 21 08/28/18 04:00 98.4 79 21 117/85 (96) 96 08/28/18 04:00 79 08/28/18 04:00 Bi-pap 08/28/18 03:45 79 23 96 08/28/18 03:16 30 08/28/18 03:16 88 19 98 Bi-Pap 30 08/28/18 03:15 88 19 98 Facial 30 08/28/18 03:00 87 22 118/95 (103) 98 08/28/18 02:00 73 19 104/61 (75) 98 08/28/18 01:26 80 19 98 Facial 30 08/28/18 01:00 79 19 110/70 (83) 98 08/28/18 00:00 Bi-pap 08/28/18 00:00 98.0 83 19 130/91 (104) 98 08/27/18 23:15 91 21 100 Bi-Pap 30 08/27/18 23:01 30 08/27/18 23:00 92 20 100 Bi-Pap 30 08/27/18 23:00 91 20 121/69 (86) 98 08/27/18 23:00 92 20 100 Facial 30 08/27/18 22:18 89 120/82 08/27/18 22:00 91 20 128/71 (90) 98 08/27/18 21:00 96 20 130/75 (93) 98 08/27/18 20:49 97 22 98 Facial 30 08/27/18 20:39 130/96 08/27/18 20:00 21 08/27/18 20:00 98 08/27/18 20:00 Bi-pap 08/27/18 20:00 98.5 100 23 138/105 (116) 99 08/27/18 19:01 30 08/27/18 19:00 96 20 97 Facial 30 08/27/18 19:00 96 20 97 Bi-Pap 30 08/27/18 17:13 105 27 97 Bi-Pap 30 08/27/18 16:48 40 08/27/18 16:48 92 35 96 Bi-Pap 40 08/27/18 16:45 99 32 100 Facial 30 08/27/18 16:20 168/140 08/27/18 16:00 21 08/27/18 16:00 87 08/27/18 16:00 Bi-pap 08/27/18 15:25 84 22 100 Bi-Pap 40 08/27/18 15:25 40 08/27/18 15:25 86 26 98 Bi-Pap 40 08/27/18 14:25 87 24 98 Facial 40 08/27/18 12:53 86 20 98 Facial 40 08/27/18 12:00 94 08/27/18 12:00 21 08/27/18 12:00 Bi-pap 08/27/18 11:00 Bi-pap 08/27/18 10:30 86 20 133/80 96 Bi-pap 21 08/27/18 10:15 83 20 100 Facial 40 Intake and Output 08/27/18 08/28/18 19:00 07:00 Intake Total 1300.0 ml 915.0 ml Output Total 990 ml Balance 1300.0 ml -75.0 ml Intake Oral 50 ml 270 ml IV Total 1250.0 ml 645.0 ml Output Urine Total 990 ml Laboratory Tests 08/28/18 06:35: White Blood Count 17.0H, Red Blood Count 4.47, Hemoglobin 11.9L, Hematocrit 35.5L, Mean Corpuscular Volume 80, Mean Corpuscular Hemoglobin 26.6L, Mean Corpuscular Hemoglobin Concent 33.4, Red Cell Distribution Width 13.1, Platelet Count 468H, Mean Platelet Volume 5.3L, Neutrophils (%) (Auto) , Lymphocytes (%) (Auto) , Monocytes (%) (Auto) , Eosinophils (%) (Auto) , Basophils (%) (Auto) , Differential Total Cells Counted 100, Neutrophils % (Manual) 89H, Lymphocytes % (Manual) 9L, Monocytes % (Manual) 2, Eosinophils % (Manual) 0, Basophils % ( Manual) 0, Band Neutrophils 0, Platelet Estimate Adequate, Platelet Morphology Normal, Anisocytosis 1+, Sodium Level 144, Potassium Level 3.2L, Chloride Level 107, Carbon Dioxide Level 25, Anion Gap 12, Blood Urea Nitrogen 24H, Creatinine 0.9, Estimat Glomerular Filtration Rate > 60, Glucose Level 138H, Calcium Level 9.1 Height (Feet): 5 Height (Inches): 4.00 Weight (Pounds): 191 General Appearance: alert EENT: normal ENT inspection Neck: normal alignment Cardiovascular: normal peripheral pulses, normal rate, regular rhythm Respiratory/Chest: chest wall non-tender, expiratory wheezing Abdomen: normal bowel sounds, non tender, soft Extremities: normal inspection Edema: no edema noted Arm (L), no edema noted Arm (R), no edema noted Leg (L), no edema noted Leg (R), no edema noted Pedal (L), no edema noted Pedal (R), no edema noted Generalized Neurologic: responsive, motor weakness Skin: normal pigmentation, warm/dry Coy Conley DO Aug 28, 2018 09:50
--- NOTE | 2018-08-28 14:22 | Consultation ---
Consult Note Consult Note # [id number] Martin Allred MD Aug 28, 2018 14:22
[2018-08-28] MEDS ORDERED: Azithromycin 500 MG in D5W 275 ML IV SCH (16:00)
[2018-08-28] MEDS ORDERED: AMINOPHYLLINE IVPB SCH (17:45)
[2018-08-28] MEDS ORDERED: SODIUM CHLORIDE IVPB SCH (17:45)
[2018-08-28] MEDS ORDERED: Isovue-300 100ml vial INJ PRN (17:45)
[2018-08-28] MEDS ORDERED: Nitroglycerin Subl 0.4mg tab SL PRN (17:45)
[2018-08-28] MEDS ORDERED: LORazepam Inj 2mg/ml 1ml IV PRN (18:30)
[2018-08-28] MEDS ORDERED: Acetaminophen 650 MG SUPP RECTAL PRN (18:30)
[2018-08-28] MEDS ORDERED: cloNIDine 0.2mg Tab ORAL PRN (18:30)
--- NOTE | 2018-08-28 19:35 | Cardiac Electrophysiology PN ---
Assessment/Plan Assessment/Plan 1. Accelerated hypertension. This could be brought by the patient's respiratory failure and severe asthma. Continue Cardizem 60 mg every 6 hours, Lisinopril 10 daily add p.r.n. clonidine. DC iv Vasotec 2. Respiratory failure with severe asthma. Now off BiPAP, further management by Dr. Perez. 3. History of thyroidectomy, on levothyroxine. 4. Obesity. Subjective Subjective Transferred out of ICU. Feeling better Objective Last 24 Hour Vital Signs Date Time Temp Pulse Resp B/P (MAP) Pulse Ox O2 Delivery O2 Flow Rate FiO2 08/28/18 18:00 98.3 93 20 133/75 (94) 98 08/28/18 17:04 110/71 08/28/18 17:00 87 18 119/77 (91) 98 08/28/18 16:00 2.0 08/28/18 16:00 86 08/28/18 16:00 98.0 81 18 107/68 (81) 99 08/28/18 16:00 Nasal Cannula 2.0 08/28/18 15:00 98 21 122/78 (93) 96 08/28/18 14:35 95 125/80 08/28/18 14:29 87 19 100 Nasal Cannula 2.0 28 08/28/18 14:29 30 08/28/18 14:00 84 20 115/76 (89) 99 08/28/18 13:00 81 21 108/67 (81) 98 08/28/18 12:55 81 20 97 2.0 28 08/28/18 12:00 Bi-pap 08/28/18 12:00 89 08/28/18 12:00 2.0 08/28/18 12:00 98.3 83 21 109/68 (82) 97 08/28/18 11:00 84 20 107/68 (81) 97 08/28/18 10:55 78 20 97 2.0 28 08/28/18 10:00 84 23 114/72 (86) 97 08/28/18 09:07 132/80 08/28/18 09:00 86 23 118/90 (99) 97 08/28/18 09:00 76 20 96 2.0 28 08/28/18 08:19 78 19 100 Nasal Cannula 2.0 28 08/28/18 08:19 30 08/28/18 08:00 2.0 08/28/18 08:00 86 08/28/18 08:00 Bi-pap 08/28/18 08:00 98.5 83 22 132/80 (97) 100 08/28/18 07:16 78 22 97 2.0 28 08/28/18 07:00 85 23 133/89 (104) 97 08/28/18 06:00 75 18 136/80 (98) 97 08/28/18 05:44 93 126/65 08/28/18 05:00 82 18 138/96 (110) 96 08/28/18 04:39 75 24 95 2.0 28 08/28/18 04:00 21 08/28/18 04:00 98.4 79 21 117/85 (96) 96 08/28/18 04:00 79 08/28/18 04:00 Bi-pap 08/28/18 03:45 79 23 96 08/28/18 03:16 30 08/28/18 03:16 88 19 98 Bi-Pap 30 08/28/18 03:15 88 19 98 Facial 30 08/28/18 03:00 87 22 118/95 (103) 98 08/28/18 02:00 73 19 104/61 (75) 98 08/28/18 01:26 80 19 98 Facial 30 08/28/18 01:00 79 19 110/70 (83) 98 08/28/18 00:00 Bi-pap 08/28/18 00:00 98.0 83 19 130/91 (104) 98 08/27/18 23:15 91 21 100 Bi-Pap 30 08/27/18 23:01 30 08/27/18 23:00 92 20 100 Bi-Pap 30 08/27/18 23:00 91 20 121/69 (86) 98 08/27/18 23:00 92 20 100 Facial 30 08/27/18 22:18 89 120/82 08/27/18 22:00 91 20 128/71 (90) 98 08/27/18 21:00 96 20 130/75 (93) 98 08/27/18 20:49 97 22 98 Facial 30 08/27/18 20:39 130/96 08/27/18 20:00 21 08/27/18 20:00 98 6/14/19 20:00 Bi-pap 08/27/18 20:00 98.5 100 23 138/105 (116) 99 Intake and Output 08/27/18 08/28/18 19:00 07:00 Intake Total 1300.0 ml 915.0 ml Output Total 990 ml Balance 1300.0 ml -75.0 ml Intake Oral 50 ml 270 ml IV Total 1250.0 ml 645.0 ml Output Urine Total 990 ml Laboratory Tests Test 08/28/18 06:35 08/28/18 15:00 08/28/18 15:20 White Blood Count 17.0 K/UL (4.8-10.8) H Red Blood Count 4.47 M/UL (4.20-5.40) Hemoglobin 11.9 G/DL (12.0-16.0) L Hematocrit 35.5 % (37.0-47.0) L Mean Corpuscular Volume 80 FL (80-99) Mean Corpuscular Hemoglobin 26.6 PG (27.0-31.0) L Mean Corpuscular Hemoglobin Concent 33.4 G/DL (32.0-36.0) Red Cell Distribution Width 13.1 % (11.6-14.8) Platelet Count 468 K/UL (150-450) H Mean Platelet Volume 5.3 FL (6.5-10.1) L Neutrophils (%) (Auto) % (45.0-75.0) Lymphocytes (%) (Auto) % (20.0-45.0) Monocytes (%) (Auto) % (1.0-10.0) Eosinophils (%) (Auto) % (0.0-3.0) Basophils (%) (Auto) % (0.0-2.0) Differential Total Cells Counted 100 Neutrophils % (Manual) 89 % (45-75) H Lymphocytes % (Manual) 9 % (20-45) L Monocytes % (Manual) 2 % (1-10) Eosinophils % (Manual) 0 % (0-3) Basophils % (Manual) 0 % (0-2) Band Neutrophils 0 % (0-8) Platelet Estimate Adequate Platelet Morphology Normal Anisocytosis 1+ Sodium Level 144 MMOL/L (136-145) Potassium Level 3.2 MMOL/L (3.5-5.1) L Chloride Level 107 MMOL/L (98-107) Carbon Dioxide Level 25 MMOL/L (21-32) Anion Gap 12 mmol/L (5-15) Blood Urea Nitrogen 24 mg/dL (7-18) H Creatinine 0.9 MG/DL (0.55-1.30) Estimat Glomerular Filtration Rate > 60 mL/min (>60) Glucose Level 138 MG/DL (74-106) H Calcium Level 9.1 MG/DL (8.5-10.1) Theophylline Level 10.8 ug/mL (10-20) Hepatitis A IgM Antibody Pending Hepatitis B Surface Antigen Pending Hepatitis B Core IgM Antibody Pending Hepatitis C Antibody Pending HIV (1&2) Antibody Rapid Negative (NEGATIVE) Objective HEAD AND NECK: No JVD. Status post thyroidectomy . LUNGS: Coarse rhonchi and wheezes. CARDIOVASCULAR: Regular S1-S2 ABDOMEN: Obese. EXTREMITIES: No pitting edema. Martell Mehta MD Aug 28, 2018 19:35
[2018-08-28] MEDS ORDERED: Enalaprilat 2.5mg/2ml Inj IV SCH (21:00)
[2018-08-28] MEDS: Piperacillin/Tazobactam 3.375 GM in NS 110 ML IVPB SCH (21:06)
--- NOTE | 2018-08-28 21:30 | Consultation ---
DATE OF CONSULTATION: 08/28/2018 INFECTIOUS DISEASES CONSULTATION CONSULTING PHYSICIAN: Martin Allred M.D. REFERRING PHYSICIAN: Coy Conley D.O. REASON FOR CONSULTATION: Evaluation of the patient for pneumonia and leukocytosis. HISTORY OF PRESENT ILLNESS: The patient is a 48-year-old female with multiple medical problems as listed below, who came to the hospital with chief complaint of cough and sputum production. The patient was admitted to the ICU for monitoring. The patient mentioned her symptoms started about a week ago. She took a week of amoxicillin, however, with no significant improvement. Now, the patient is admitted here for further care. PAST MEDICAL HISTORY: 1. History of renal stones. 2. Migraine. 3. Thyroidectomy for thyroid cancer. 4. Hypertension. ALLERGIES: Morphine. MEDICATIONS: Zosyn and Solu-Medrol. FAMILY HISTORY: Not contributing. REVIEW OF SYSTEMS: Ten-point review was done. The patient has been complaining of having some dysuria. PHYSICAL EXAMINATION: VITAL SIGNS: Pulse 84, respiratory rate 20, blood pressure 107/68, temperature 97.5. HEENT: No pale conjunctivae. No icterus. NECK: No lymphadenopathy. CHEST: Bilateral mild wheezes. HEART: S1, S2. ABDOMEN: Soft, obese. EXTREMITIES: No cyanosis at this time. NEUROLOGIC: Awake and alert. LABORATORY DATA: White blood cells at the time of admission 13.6 and today it is 17, hemoglobin 11, platelet 468,000. UA, 0 to 2 white blood cells, 10 to 15 red blood cells. BUN 24, creatinine 0.9. ALT, AST, and alkaline phosphatase unremarkable. Urine-tox positive for amphetamines and benzodiazepines (the patient denied any drug abuse at the time of my interview). Urine culture growing mixed organisms. Chest x-ray, no acute process. ASSESSMENT: The patient is a 48-year-old female with: 1. Leukocytosis (worsened due to the steroids). 2. Possible community-acquired pneumonia. 3. Afebrile. 4. ? dysuria with probable UTI. PLAN: 1. We will continue the patient on Zosyn with Zithromax. 2. Monitor blood culture and urine culture. 3. We will check the patient for HIV and hepatitis panel. 4. Monitor chest x-ray. 5. Based on the patient's clinical course and labs, we will do further recommendation. Thank you, Dr. Coy Conley, for allowing me to participate in the care of this patient. I will follow the patient with you during this hospitalization. Martin Allred M.D. DR: Rico JOB#: [id number] CC:
[2018-08-29] VITALS: BP 125/83
[2018-08-29] MEDS: Levothyroxine 25mcg tab ORAL SCH (05:49)
[2018-08-29] MEDS: Zoysn 3.37gm in NS 100ML IVPB SCH (05:50)
[2018-08-29] MEDS: Solu-MEDROL 125mg Inj IV SCH (05:50)
[2018-08-29] MEDS: dilTIAZem HCl 60mg tab ORAL SCH ×3 (05:50→21:49)
[2018-08-29] MEDS: Piperacillin/Tazobactam 3.375 GM in NS 110 ML IVPB SCH ×3 (05:51→21:50)
[2018-08-29 07:58] LABS: HEMATOCRIT 36.3 % (37.0-47.0); MEAN CORPUSCULAR VOLUME 80 FL (80-99); PLATELET COUNT 488 K/UL (150-450); RED BLOOD COUNT 4.56 M/UL (4.20-5.40); WHITE BLOOD COUNT 18.2 K/UL (4.8-10.8)
[2018-08-29 08:00] VITALS: BP 134/81
[2018-08-29 08:06] LABS: ANION GAP 10 mmol/L (5-15); BLOOD UREA NITROGEN 20 mg/dL (7-18); CALCIUM 8.8 MG/DL (8.5-10.1); CARBON DIOXIDE 26 MMOL/L (21-32); CHLORIDE 107 MMOL/L (98-107); CREATININE 0.7 MG/DL (0.55-1.30); POTASSIUM 3.5 MMOL/L (3.5-5.1); SODIUM 142 MMOL/L (136-145)
[2018-08-29] MEDS: Lisinopril 10mg tab ORAL SCH ×2 (08:57→18:06)
[2018-08-29] MEDS: Heparin 5000 units/ml inj SUBQ SCH ×2 (08:58→21:49)
[2018-08-29] MEDS: Promethazine/Codeine 5ml UD ORAL PRN ×2 (09:30→16:27)
[2018-08-29] MEDS ORDERED: NS 275ml ONE (09:45)
[2018-08-29] MEDS ORDERED: Tubing IV Secondary IV ONE (09:45)
--- NOTE | 2018-08-29 10:16 | General Progress Note ---
Assessment/Plan Problem List: (1) SOB (shortness of breath) ICD Codes: R06.02 - Shortness of breath SNOMED: 850232535 (2) HTN (hypertension) ICD Codes: I10 - Essential (primary) hypertension SNOMED: 08753038 (3) UTI (urinary tract infection) ICD Codes: N39.0 - Urinary tract infection, site not specified SNOMED: 02835913 (4) Acute respiratory failure ICD Codes: J96.00 - Acute respiratory failure, unspecified whether with hypoxia or hypercapnia SNOMED: 99069619 (5) Status asthmaticus ICD Codes: J45.902 - Unspecified asthma with status asthmaticus SNOMED: 234627483 Qualifiers: Qualified Codes: J45.52 - Severe persistent asthma with status asthmaticus Status: stable, progressing Assessment/Plan: o2 pulm tx abx cbc bmp am Subjective Constitutional: Reports: weakness Respiratory: Reports: shortness of breath Allergies: Coded Allergies: MORPHINE (Verified Allergy, Severe, Shortness of Breath, 08/27/18) rash, swelling of tounge, and SOB All Systems: reviewed and negative except above Subjective o2nc calm Objective Last 24 Hour Vital Signs Date Time Temp Pulse Resp B/P (MAP) Pulse Ox O2 Delivery O2 Flow Rate FiO2 08/29/18 09:50 88 18 95 Nasal Cannula 2.0 28 08/29/18 09:50 95 Nasal Cannula 2.0 28 08/29/18 08:57 134/81 08/29/18 08:00 76 08/29/18 08:00 97.3 77 18 134/81 (98) 94 08/29/18 05:50 63 136/79 08/29/18 04:00 21 08/29/18 04:00 Nasal Cannula 2.0 08/29/18 04:00 63 08/29/18 00:00 Nasal Cannula 2.0 08/29/18 00:00 21 08/29/18 00:00 84 08/29/18 00:00 98.2 87 19 125/83 (97) 93 08/28/18 23:51 95 Nasal Cannula 2.0 28 08/28/18 23:51 94 20 95 Nasal Cannula 2.0 28 08/28/18 21:04 94 153/114 08/28/18 20:00 21 08/28/18 20:00 98.4 94 19 153/114 (127) 94 08/28/18 20:00 94 08/28/18 20:00 Nasal Cannula 2.0 08/28/18 18:00 98.3 93 20 133/75 (94) 98 08/28/18 17:04 110/71 08/28/18 17:00 87 18 119/77 (91) 98 08/28/18 16:00 2.0 08/28/18 16:00 86 08/28/18 16:00 98.0 81 18 107/68 (81) 99 08/28/18 16:00 Nasal Cannula 2.0 08/28/18 15:00 98 21 122/78 (93) 96 08/28/18 14:35 95 125/80 08/28/18 14:29 87 19 100 Nasal Cannula 2.0 28 08/28/18 14:29 30 08/28/18 14:00 84 20 115/76 (89) 99 08/28/18 13:00 81 21 108/67 (81) 98 08/28/18 12:55 81 20 97 2.0 28 08/28/18 12:00 Bi-pap 08/28/18 12:00 89 08/28/18 12:00 2.0 08/28/18 12:00 98.3 83 21 109/68 (82) 97 08/28/18 11:00 84 20 107/68 (81) 97 08/28/18 10:55 78 20 97 2.0 28 Intake and Output 08/28/18 08/29/18 19:00 07:00 Intake Total 899.4 ml 560.0 ml Balance 899.4 ml 560.0 ml Intake Oral 330 ml 450 ml IV Total 569.4 ml 110.0 ml # Voids 1 2 Laboratory Tests 08/28/18 15:00: Theophylline Level 10.8 08/28/18 15:20: Hepatitis A IgM Antibody [Pending], Hepatitis B Surface Antigen [Pending], Hepatitis B Core IgM Antibody [Pending], Hepatitis C Antibody [Pending], HIV (1& 2) Antibody Rapid Negative 08/29/18 07:30: White Blood Count 18.2H, Red Blood Count 4.56, Hemoglobin 12.0, Hematocrit 36.3L , Mean Corpuscular Volume 80, Mean Corpuscular Hemoglobin 26.3L, Mean Corpuscular Hemoglobin Concent 33.0, Red Cell Distribution Width 13.0, Platelet Count 488H, Mean Platelet Volume 5.1L, Neutrophils (%) (Auto) , Lymphocytes (%) (Auto) , Monocytes (%) (Auto) , Eosinophils (%) (Auto) , Basophils (%) (Auto) , Differential Total Cells Counted 100, Neutrophils % (Manual) 90H, Lymphocytes % (Manual) 8L, Monocytes % (Manual) 2, Eosinophils % (Manual) 0, Basophils % ( Manual) 0, Band Neutrophils 0, Platelet Estimate Adequate, Platelet Morphology Normal, Red Blood Cell Morphology Normal, Sodium Level 142, Potassium Level 3.5 , Chloride Level 107, Carbon Dioxide Level 26, Anion Gap 10, Blood Urea Nitrogen 20H, Creatinine 0.7, Estimat Glomerular Filtration Rate > 60, Glucose Level 145H, Calcium Level 8.8 Height (Feet): 5 Height (Inches): 4.00 Weight (Pounds): 192 General Appearance: lethargic EENT: normal ENT inspection Neck: normal alignment Cardiovascular: normal peripheral pulses, normal rate, regular rhythm Respiratory/Chest: chest wall non-tender, lungs clear, expiratory wheezing Abdomen: normal bowel sounds, non tender, soft Extremities: normal inspection Edema: no edema noted Arm (L), no edema noted Arm (R), no edema noted Leg (L), no edema noted Leg (R), no edema noted Pedal (L), no edema noted Pedal (R), no edema noted Generalized Neurologic: responsive, motor weakness Skin: normal pigmentation, warm/dry Coy Conley DO Aug 29, 2018 10:16
[2018-08-29] MEDS: Albuterol/Ipratropium 3ml neb HHN PRN (11:26)
[2018-08-29 12:00] VITALS: BP 135/70
[2018-08-29 16:00] VITALS: BP 145/71
--- NOTE | 2018-08-29 16:38 | Cardiac Electrophysiology PN ---
Assessment/Plan Assessment/Plan 1. Accelerated hypertension. Continue Cardizem 60 mg every 6 hours, Lisinopril 10 daily and p.r.n. clonidine. 2. Respiratory failure with severe asthma. Now off BiPAP by Dr. Perez. 3. History of thyroidectomy, on levothyroxine. 4. Obesity. Subjective Subjective No CP or SOB. Feeling better Objective Last 24 Hour Vital Signs Date Time Temp Pulse Resp B/P (MAP) Pulse Ox O2 Delivery O2 Flow Rate FiO2 08/29/18 14:39 91 135/70 08/29/18 12:00 2.0 08/29/18 12:00 98.2 98 18 135/70 (91) 94 08/29/18 12:00 Nasal Cannula 2.0 08/29/18 12:00 91 08/29/18 11:40 96 22 100 Nasal Cannula 2.0 28 08/29/18 11:40 28 08/29/18 11:26 92 22 99 Nasal Cannula 2.0 28 08/29/18 09:50 88 18 95 Nasal Cannula 2.0 28 08/29/18 09:50 95 Nasal Cannula 2.0 28 08/29/18 08:57 134/81 08/29/18 08:00 2.0 08/29/18 08:00 Nasal Cannula 2.0 08/29/18 08:00 76 08/29/18 08:00 97.3 77 18 134/81 (98) 94 08/29/18 05:50 63 136/79 08/29/18 04:00 21 08/29/18 04:00 Nasal Cannula 2.0 08/29/18 04:00 63 08/29/18 00:00 Nasal Cannula 2.0 08/29/18 00:00 21 08/29/18 00:00 84 08/29/18 00:00 98.2 87 19 125/83 (97) 93 08/28/18 23:51 95 Nasal Cannula 2.0 28 08/28/18 23:51 94 20 95 Nasal Cannula 2.0 28 08/28/18 21:04 94 153/114 08/28/18 20:00 21 08/28/18 20:00 98.4 94 19 153/114 (127) 94 08/28/18 20:00 94 08/28/18 20:00 Nasal Cannula 2.0 08/28/18 18:00 98.3 93 20 133/75 (94) 98 08/28/18 17:04 110/71 08/28/18 17:00 87 18 119/77 (91) 98 Intake and Output 08/28/18 08/29/18 19:00 07:00 Intake Total 899.4 ml 560.0 ml Balance 899.4 ml 560.0 ml Intake Oral 330 ml 450 ml IV Total 569.4 ml 110.0 ml # Voids 1 2 Laboratory Tests Test 08/29/18 07:30 White Blood Count 18.2 K/UL (4.8-10.8) H Red Blood Count 4.56 M/UL (4.20-5.40) Hemoglobin 12.0 G/DL (12.0-16.0) Hematocrit 36.3 % (37.0-47.0) L Mean Corpuscular Volume 80 FL (80-99) Mean Corpuscular Hemoglobin 26.3 PG (27.0-31.0) L Mean Corpuscular Hemoglobin Concent 33.0 G/DL (32.0-36.0) Red Cell Distribution Width 13.0 % (11.6-14.8) Platelet Count 488 K/UL (150-450) H Mean Platelet Volume 5.1 FL (6.5-10.1) L Neutrophils (%) (Auto) % (45.0-75.0) Lymphocytes (%) (Auto) % (20.0-45.0) Monocytes (%) (Auto) % (1.0-10.0) Eosinophils (%) (Auto) % (0.0-3.0) Basophils (%) (Auto) % (0.0-2.0) Differential Total Cells Counted 100 Neutrophils % (Manual) 90 % (45-75) H Lymphocytes % (Manual) 8 % (20-45) L Monocytes % (Manual) 2 % (1-10) Eosinophils % (Manual) 0 % (0-3) Basophils % (Manual) 0 % (0-2) Band Neutrophils 0 % (0-8) Platelet Estimate Adequate Platelet Morphology Normal Red Blood Cell Morphology Normal Sodium Level 142 MMOL/L (136-145) Potassium Level 3.5 MMOL/L (3.5-5.1) Chloride Level 107 MMOL/L (98-107) Carbon Dioxide Level 26 MMOL/L (21-32) Anion Gap 10 mmol/L (5-15) Blood Urea Nitrogen 20 mg/dL (7-18) H Creatinine 0.7 MG/DL (0.55-1.30) Estimat Glomerular Filtration Rate > 60 mL/min (>60) Glucose Level 145 MG/DL (74-106) H Calcium Level 8.8 MG/DL (8.5-10.1) Microbiology Date/Time Source Procedure Growth Status 08/28/18 15:20 Sputum Gram Stain - Final Resulted 08/28/18 15:20 Sputum Sputum Culture Pending Resulted 08/27/18 09:20 Nasal Nares MRSA Culture - Final NO METHICILLIN RESISTANT STAPH AUREUS... Complete 08/27/18 09:20 Rectum VRE Culture - Final NO VANCOMYCIN RESISTANT ENTEROCOCCUS ... Complete 08/27/18 09:20 Rectum - Final NO CARBAPENEM-RESISTANT ENTEROBACTERI... Complete Objective HEAD AND NECK: No JVD. Status post thyroidectomy . LUNGS: Coarse rhonchi and wheezes. CARDIOVASCULAR: Regular S1-S2 ABDOMEN: Obese. EXTREMITIES: No pitting edema. Martell Mehta MD Aug 29, 2018 16:38
[2018-08-29] MEDS: Azithromycin 500 MG in D5W 275 ML IV SCH (18:01)
[2018-08-29 20:00] VITALS: BP 136/98
[2018-08-30] VITALS: BP 148/62
[2018-08-30 04:00] VITALS: BP 145/71
--- NOTE | 2018-08-30 05:08 | Cardiac Electrophysiology PN ---
Assessment/Plan Assessment/Plan 1. Accelerated hypertension. Better on Cardizem 60 mg every 6 hours, Lisinopril 10 daily and p.r.n. clonidine. 2. Respiratory failure with severe asthma. Now off BiPAP. FU Dr. Perez. 3. History of thyroidectomy, on levothyroxine. 4. Obesity. 5. Headache. Changed Tylenol to po DW RN Subjective Subjective No CP or SOB.Has headache. Objective Last 24 Hour Vital Signs Date Time Temp Pulse Resp B/P (MAP) Pulse Ox O2 Delivery O2 Flow Rate FiO2 08/30/18 04:00 97.6 62 18 145/71 (95) 96 08/30/18 04:00 21 08/30/18 04:00 53 08/30/18 04:00 Nasal Cannula 2.0 08/30/18 00:00 67 08/30/18 00:00 Nasal Cannula 2.0 08/30/18 00:00 21 08/30/18 00:00 97.8 73 18 148/62 (90) 98 08/29/18 21:49 77 136/98 08/29/18 20:00 Nasal Cannula 2.0 08/29/18 20:00 21 08/29/18 20:00 98.1 77 18 136/98 (111) 97 08/29/18 20:00 77 08/29/18 18:06 145/71 08/29/18 16:00 63 08/29/18 16:00 2.0 08/29/18 16:00 98.2 71 18 145/71 (95) 95 08/29/18 16:00 Nasal Cannula 2.0 08/29/18 14:39 91 135/70 08/29/18 12:00 2.0 08/29/18 12:00 98.2 98 18 135/70 (91) 94 08/29/18 12:00 Nasal Cannula 2.0 08/29/18 12:00 91 08/29/18 11:40 96 22 100 Nasal Cannula 2.0 28 08/29/18 11:40 28 08/29/18 11:26 92 22 99 Nasal Cannula 2.0 28 08/29/18 09:50 88 18 95 Nasal Cannula 2.0 28 08/29/18 09:50 95 Nasal Cannula 2.0 28 08/29/18 08:57 134/81 08/29/18 08:00 2.0 08/29/18 08:00 Nasal Cannula 2.0 08/29/18 08:00 76 08/29/18 08:00 97.3 77 18 134/81 (98) 94 08/29/18 05:50 63 136/79 Intake and Output 08/29/18 08/30/18 18:59 06:59 Intake Total 240 ml Balance 240 ml Intake Oral 240 ml # Voids 2 Laboratory Tests Test 08/29/18 07:30 White Blood Count 18.2 K/UL (4.8-10.8) H Red Blood Count 4.56 M/UL (4.20-5.40) Hemoglobin 12.0 G/DL (12.0-16.0) Hematocrit 36.3 % (37.0-47.0) L Mean Corpuscular Volume 80 FL (80-99) Mean Corpuscular Hemoglobin 26.3 PG (27.0-31.0) L Mean Corpuscular Hemoglobin Concent 33.0 G/DL (32.0-36.0) Red Cell Distribution Width 13.0 % (11.6-14.8) Platelet Count 488 K/UL (150-450) H Mean Platelet Volume 5.1 FL (6.5-10.1) L Neutrophils (%) (Auto) % (45.0-75.0) Lymphocytes (%) (Auto) % (20.0-45.0) Monocytes (%) (Auto) % (1.0-10.0) Eosinophils (%) (Auto) % (0.0-3.0) Basophils (%) (Auto) % (0.0-2.0) Differential Total Cells Counted 100 Neutrophils % (Manual) 90 % (45-75) H Lymphocytes % (Manual) 8 % (20-45) L Monocytes % (Manual) 2 % (1-10) Eosinophils % (Manual) 0 % (0-3) Basophils % (Manual) 0 % (0-2) Band Neutrophils 0 % (0-8) Platelet Estimate Adequate Platelet Morphology Normal Red Blood Cell Morphology Normal Sodium Level 142 MMOL/L (136-145) Potassium Level 3.5 MMOL/L (3.5-5.1) Chloride Level 107 MMOL/L (98-107) Carbon Dioxide Level 26 MMOL/L (21-32) Anion Gap 10 mmol/L (5-15) Blood Urea Nitrogen 20 mg/dL (7-18) H Creatinine 0.7 MG/DL (0.55-1.30) Estimat Glomerular Filtration Rate > 60 mL/min (>60) Glucose Level 145 MG/DL (74-106) H Calcium Level 8.8 MG/DL (8.5-10.1) Microbiology Date/Time Source Procedure Growth Status 08/28/18 15:20 Sputum Gram Stain - Final Resulted 08/28/18 15:20 Sputum Sputum Culture Pending Resulted 08/27/18 09:20 Nasal Nares MRSA Culture - Final NO METHICILLIN RESISTANT STAPH AUREUS... Complete 08/27/18 09:20 Rectum VRE Culture - Final NO VANCOMYCIN RESISTANT ENTEROCOCCUS ... Complete 08/27/18 09:20 Rectum - Final NO CARBAPENEM-RESISTANT ENTEROBACTERI... Complete Objective HEAD AND NECK: No JVD. Status post thyroidectomy . LUNGS: Coarse rhonchi and wheezes. CARDIOVASCULAR: Regular S1-S2 ABDOMEN: Obese. EXTREMITIES: No pitting edema. Martell Mehta MD Aug 30, 2018 05:08
[2018-08-30] MEDS: dilTIAZem HCl 60mg tab ORAL SCH ×3 (05:23→21:38)
[2018-08-30] MEDS: Solu-MEDROL 125mg Inj IV SCH (05:24)
[2018-08-30] MEDS: Piperacillin/Tazobactam 3.375 GM in NS 110 ML IVPB SCH ×3 (05:28→21:37)
[2018-08-30] MEDS: Levothyroxine 25mcg tab ORAL SCH (05:31)
[2018-08-30 08:00] VITALS: BP 134/90
[2018-08-30 08:17] LABS: BASOPHILS % (AUTO) 0.3 % (0.0-2.0); HEMATOCRIT 38.1 % (37.0-47.0); HEMOGLOBIN 12.4 G/DL (12.0-16.0); LYMPHOCYTES % (AUTO) 11.3 % (20.0-45.0); MEAN CORPUSCULAR VOLUME 79 FL (80-99); NEUTROPHILS % (AUTO) 82.3 % (45.0-75.0); PLATELET COUNT 473 K/UL (150-450); RED CELL DISTRIBUTION WIDTH 12.8 % (11.6-14.8); WHITE BLOOD COUNT 13.7 K/UL (4.8-10.8)
[2018-08-30 08:32] LABS: ANION GAP 9 mmol/L (5-15); BLOOD UREA NITROGEN 20 mg/dL (7-18); CALCIUM 8.7 MG/DL (8.5-10.1); CARBON DIOXIDE 28 MMOL/L (21-32); CHLORIDE 107 MMOL/L (98-107); CREATININE 0.7 MG/DL (0.55-1.30); POTASSIUM 3.5 MMOL/L (3.5-5.1); SODIUM 144 MMOL/L (136-145)
[2018-08-30] MEDS: Lisinopril 10mg tab ORAL SCH ×2 (09:27→18:17)
[2018-08-30] MEDS: Heparin 5000 units/ml inj SUBQ SCH ×2 (09:31→21:39)
--- NOTE | 2018-08-30 09:53 | Cardiology Report ---
APPROVED REPORT EXAM: Two-dimensional and M-mode echocardiogram with Doppler and color Doppler. INDICATION Hypertension M-Mode DIMENSIONS IVSd1.1 (0.7-1.1cm)Left Atrium (MM)3.1 (1.6-4.0cm) LVDd4.0 (3.5-5.6cm)Aortic Root3.2 (2.0-3.7cm) PWd1.3 (0.7-1.1cm)Aortic Cusp Exc.2.0 (1.5-2.0cm) LVDs2.0 (2.5-4.0cm) PWs2.1 cm Technically difficult study due to poor acoustic windows. Study quality precludes accurate assessment of regional wall motion. Normal left ventricular chamber size, systolic function and wall motion. Left ventricular ejection fraction estimated to be 65 %. Mild left ventricular hypertrophy. No evidence of pericardial effusion. All other cardiac chamber sizes are within normal limits. Normal appearing aortic, mitral, and tricuspid valves. Mitral annulus and aortic root calcification. Pulmonic valve not well visualized. IVC is normal in size with physiological collapse. A color flow and spectral Doppler study was performed and revealed: No aortic regurgitation. No mitral regurgitation. Mitral diastolic velocities suggest mild left ventricular diastolic dysfunction (Grade I). Trace tricuspid regurgitation. Tricuspid systolic velocities suggests peak right ventricular systolic pressure of 38 mmHg, consistent with mild pulmonary hypertension. No pulmonic regurgitation present.
[2018-08-30] MEDS: Promethazine/Codeine 5ml UD ORAL PRN (12:10)
--- NOTE | 2018-08-30 12:12 | Infectious Diseases Prog Note ---
Assessment/Plan Assessment/Plan ASSESSMENT: The patient is a 48-year-old female with Leukocytosis Probable Community-acquired pneumonia. Sp Cx NF 08/28/18 Leukocytosis (worsened due to the steroids). Afebrile. Dysuria UCx (-) 08/29/18 Blood Cx 08/28/18 ( NGTD ) PLAN: - Start Ceftriaxone #1/5 - Continue Zithromax #3/7. - On D/C could switch to PO levofloxacin 500mg Qday to finish a 7 day course - 08/30/18 SP Zosyn #3 - Monitor blood culture Subjective Allergies: Coded Allergies: MORPHINE (Verified Allergy, Severe, Shortness of Breath, 08/27/18) rash, swelling of tounge, and SOB Subjective Afebrile Leukocytosis improving Satting well on NC Objective Vital Signs Last 24 Hour Vital Signs Date Time Temp Pulse Resp B/P (MAP) Pulse Ox O2 Delivery O2 Flow Rate FiO2 08/30/18 12:02 176/116 08/30/18 09:27 134/90 08/30/18 08:00 97.6 64 16 134/90 (105) 96 08/30/18 08:00 78 08/30/18 05:23 53 145/71 08/30/18 04:00 97.6 62 18 145/71 (95) 96 08/30/18 04:00 21 08/30/18 04:00 53 08/30/18 04:00 Nasal Cannula 2.0 08/30/18 00:00 67 08/30/18 00:00 Nasal Cannula 2.0 08/30/18 00:00 21 08/30/18 00:00 97.8 73 18 148/62 (90) 98 08/29/18 21:49 77 136/98 08/29/18 20:00 Nasal Cannula 2.0 08/29/18 20:00 21 08/29/18 20:00 98.1 77 18 136/98 (111) 97 08/29/18 20:00 77 08/29/18 18:06 145/71 08/29/18 16:00 63 08/29/18 16:00 2.0 08/29/18 16:00 98.2 71 18 145/71 (95) 95 08/29/18 16:00 Nasal Cannula 2.0 08/29/18 14:39 91 135/70 Height (Feet): 5 Height (Inches): 4.00 Weight (Pounds): 192 Objective HEENT: NCAT, MMM CHEST: CTAB, No W. HEART: RRR, S1, S2. ABDOMEN: Soft, obese. NT, ND NEUROLOGIC: Awake and alert. Microbiology Date/Time Source Procedure Growth Status 08/28/18 15:20 Blood Blood Culture - Preliminary NO GROWTH AFTER 24 HOURS Resulted 08/28/18 15:15 Blood Blood Culture - Preliminary NO GROWTH AFTER 24 HOURS Resulted 08/28/18 15:20 Sputum Gram Stain - Final Complete 08/28/18 15:20 Sputum Sputum Culture - Final NORMAL UPPER RESPIRATORY DAMIR PRESENT Complete 08/29/18 06:15 Urine,Clean Catch Urine Culture - Preliminary NO GROWTH AFTER 24 HOURS Resulted Laboratory Tests Test 08/30/18 06:45 White Blood Count 13.7 K/UL (4.8-10.8) H Red Blood Count 4.80 M/UL (4.20-5.40) Hemoglobin 12.4 G/DL (12.0-16.0) Hematocrit 38.1 % (37.0-47.0) Mean Corpuscular Volume 79 FL (80-99) L Mean Corpuscular Hemoglobin 25.9 PG (27.0-31.0) L Mean Corpuscular Hemoglobin Concent 32.6 G/DL (32.0-36.0) Red Cell Distribution Width 12.8 % (11.6-14.8) Platelet Count 473 K/UL (150-450) H Mean Platelet Volume 5.2 FL (6.5-10.1) L Neutrophils (%) (Auto) 82.3 % (45.0-75.0) H Lymphocytes (%) (Auto) 11.3 % (20.0-45.0) L Monocytes (%) (Auto) 6.0 % (1.0-10.0) Eosinophils (%) (Auto) 0.0 % (0.0-3.0) Basophils (%) (Auto) 0.3 % (0.0-2.0) Sodium Level 144 MMOL/L (136-145) Potassium Level 3.5 MMOL/L (3.5-5.1) Chloride Level 107 MMOL/L (98-107) Carbon Dioxide Level 28 MMOL/L (21-32) Anion Gap 9 mmol/L (5-15) Blood Urea Nitrogen 20 mg/dL (7-18) H Creatinine 0.7 MG/DL (0.55-1.30) Estimat Glomerular Filtration Rate > 60 mL/min (>60) Glucose Level 113 MG/DL (74-106) H Calcium Level 8.7 MG/DL (8.5-10.1) Current Medications Medications (Trade) Dose Ordered Sig/Ankita Route PRN Reason Start Time Stop Time Status Last Admin Dose Admin Acetaminophen (Tylenol) 650 mg Q4H PRN ORAL Mild Pain/Temp > 100.5 08/30/18 05:00 09/29/18 04:59 08/30/18 10:14 Acetaminophen (Tylenol) 650 mg Q4H PRN RECTAL Mild Pain (Pain Scale 1-3) 08/28/18 18:30 09/26/18 18:29 Albuterol/ Ipratropium (Albuterol/ Ipratropium) 3 ml Q4H PRN HHN dyspnea 08/28/18 18:30 09/01/18 18:29 08/29/18 11:26 Azithromycin 500 mg/Dextrose 275 ml @ 275 mls/hr Q24HRS IV 08/29/18 16:00 09/03/18 16:59 08/29/18 18:01 Clonidine HCl (Catapres tab) 0.2 mg Q2H PRN ORAL SBP>170 08/28/18 18:30 09/26/18 18:29 Dextrose (Dextrose 50%) 25 ml Q30M PRN IV Hypoglycemia 08/28/18 18:00 09/26/18 09:29 Dextrose (Dextrose 50%) 50 ml Q30M PRN IV Hypoglycemia 08/28/18 18:00 09/26/18 09:29 Diltiazem HCl (Cardizem) 60 mg EVERY 8 HOURS ORAL 08/28/18 22:00 09/26/18 21:59 08/30/18 05:23 Famotidine (Pepcid I.v.) 20 mg DAILY IVP 08/29/18 09:00 09/28/18 08:59 08/30/18 09:27 Heparin Sodium (Porcine) (Heparin 5000 units/ml) 5,000 units EVERY 12 HOURS SUBQ 08/28/18 21:00 09/26/18 20:59 08/30/18 09:31 Hydralazine HCl (Apresoline) 10 mg Q2H PRN IV For High Blood Pressure 08/28/18 18:15 09/26/18 18:14 08/30/18 12:02 Levothyroxine Sodium (Synthroid) 25 mcg ACBREAKFAST ORAL 08/29/18 06:30 09/28/18 06:29 08/30/18 05:31 Lisinopril (Zestril) 10 mg BID ORAL 08/29/18 09:00 09/28/18 08:59 08/30/18 09:27 Lorazepam (Ativan 2mg/ml 1ml) 0.5 mg Q4H PRN IV For Anxiety 08/28/18 18:30 09/03/18 18:29 Methylprednisolone Sodium Succinate (Solu-MEDROL) 60 mg Q24HRS IV 08/30/18 06:00 09/28/18 00:00 08/30/18 05:24 Nitroglycerin (Ntg) 0.4 mg Q5M X 3 DOSES PRN SL Prn Chest Pain 08/28/18 17:45 09/26/18 09:29 Ondansetron HCl (Zofran) 4 mg Q6H PRN IVP Nausea & Vomiting 08/28/18 18:30 09/26/18 18:29 Piperacillin Sod/ Tazobactam Sod 3.375 gm/Sodium Chloride 110 ml @ 27.5 mls/hr EVERY 8 HOURS IVPB 08/28/18 22:00 09/01/18 13:59 08/30/18 05:28 Promethazine HCl/ Codeine (Phenergan with Codeine) 5 ml Q6H PRN ORAL cough 08/28/18 18:30 09/26/18 18:29 08/29/18 16:27 Temazepam (Restoril) 15 mg HSPRN PRN ORAL Insomnia 08/28/18 21:00 09/04/18 20:59 08/29/18 21:50 Jw Bush MD Aug 30, 2018 12:12
--- NOTE | 2018-08-30 12:24 | General Progress Note ---
Assessment/Plan Problem List: (1) SOB (shortness of breath) ICD Codes: R06.02 - Shortness of breath SNOMED: 574518784 (2) HTN (hypertension) ICD Codes: I10 - Essential (primary) hypertension SNOMED: 06982441 (3) UTI (urinary tract infection) ICD Codes: N39.0 - Urinary tract infection, site not specified SNOMED: 16723812 (4) Acute respiratory failure ICD Codes: J96.00 - Acute respiratory failure, unspecified whether with hypoxia or hypercapnia SNOMED: 94477541 (5) Status asthmaticus ICD Codes: J45.902 - Unspecified asthma with status asthmaticus SNOMED: 969654874 Qualifiers: Qualified Codes: J45.52 - Severe persistent asthma with status asthmaticus Status: stable, progressing Assessment/Plan: o2 pulm tx abx cbc bmp am dc plan if clear Subjective Constitutional: Reports: weakness Allergies: Coded Allergies: MORPHINE (Verified Allergy, Severe, Shortness of Breath, 08/27/18) rash, swelling of tounge, and SOB All Systems: reviewed and negative except above Subjective o2nc calm Objective Last 24 Hour Vital Signs Date Time Temp Pulse Resp B/P (MAP) Pulse Ox O2 Delivery O2 Flow Rate FiO2 08/30/18 12:13 176/116 08/30/18 12:02 176/116 08/30/18 09:27 134/90 08/30/18 08:00 97.6 64 16 134/90 (105) 96 08/30/18 08:00 78 08/30/18 05:23 53 145/71 08/30/18 04:00 97.6 62 18 145/71 (95) 96 08/30/18 04:00 21 08/30/18 04:00 53 08/30/18 04:00 Nasal Cannula 2.0 08/30/18 00:00 67 08/30/18 00:00 Nasal Cannula 2.0 08/30/18 00:00 21 08/30/18 00:00 97.8 73 18 148/62 (90) 98 08/29/18 21:49 77 136/98 08/29/18 20:00 Nasal Cannula 2.0 08/29/18 20:00 21 08/29/18 20:00 98.1 77 18 136/98 (111) 97 08/29/18 20:00 77 6/16/19 18:06 145/71 08/29/18 16:00 63 08/29/18 16:00 2.0 08/29/18 16:00 98.2 71 18 145/71 (95) 95 08/29/18 16:00 Nasal Cannula 2.0 08/29/18 14:39 91 135/70 Intake and Output 08/29/18 08/30/18 19:00 07:00 Intake Total 240 ml 110.0 ml Balance 240 ml 110.0 ml Intake Oral 240 ml IV Total 110.0 ml # Voids 2 Laboratory Tests 08/30/18 06:45: White Blood Count 13.7H, Red Blood Count 4.80, Hemoglobin 12.4, Hematocrit 38.1 , Mean Corpuscular Volume 79L, Mean Corpuscular Hemoglobin 25.9L, Mean Corpuscular Hemoglobin Concent 32.6, Red Cell Distribution Width 12.8, Platelet Count 473H, Mean Platelet Volume 5.2L, Neutrophils (%) (Auto) 82.3H, Lymphocytes (%) (Auto) 11.3L, Monocytes (%) (Auto) 6.0, Eosinophils (%) (Auto) 0.0, Basophils (%) (Auto) 0.3, Sodium Level 144, Potassium Level 3.5, Chloride Level 107, Carbon Dioxide Level 28, Anion Gap 9, Blood Urea Nitrogen 20H, Creatinine 0.7, Estimat Glomerular Filtration Rate > 60, Glucose Level 113H, Calcium Level 8.7 Height (Feet): 5 Height (Inches): 4.00 Weight (Pounds): 192 General Appearance: lethargic EENT: normal ENT inspection Neck: normal alignment Cardiovascular: normal peripheral pulses, normal rate, regular rhythm Respiratory/Chest: chest wall non-tender, lungs clear, normal breath sounds Abdomen: normal bowel sounds, non tender, soft Extremities: normal inspection Edema: no edema noted Arm (L), no edema noted Arm (R), no edema noted Leg (L), no edema noted Leg (R), no edema noted Pedal (L), no edema noted Pedal (R), no edema noted Generalized Neurologic: responsive, motor weakness Skin: normal pigmentation, warm/dry Coy Conley DO Aug 30, 2018 12:24
[2018-08-30] MEDS ORDERED: NORVASC5 MG ORAL (13:04)
[2018-08-30] MEDS ORDERED: BACTRIM DS TAB1 EAC1 ORAL (13:04)
[2018-08-30] MEDS ORDERED: PHENERGAN25 M1 ORAL (13:04)
[2018-08-30] MEDS ORDERED: MEDROL DOSEPAK4 MG ORAL (13:04)
--- NOTE | 2018-08-30 13:07 | Pulmonology Progress Note ---
Assessment/Plan Problems: (1) Status asthmaticus (2) Hypothyroidism (3) Acute respiratory failure Assessment/Plan improving taper steroids continue abx no sputum yet Subjective ROS Limited/Unobtainable: No Constitutional: Reports: no symptoms HEENT: Repors: no symptoms Allergies: Coded Allergies: MORPHINE (Verified Allergy, Severe, Shortness of Breath, 08/27/18) rash, swelling of tounge, and SOB Objective Last 24 Hour Vital Signs Date Time Temp Pulse Resp B/P (MAP) Pulse Ox O2 Delivery O2 Flow Rate FiO2 08/30/18 12:13 176/116 08/30/18 12:02 176/116 08/30/18 09:27 134/90 08/30/18 08:00 97.6 64 16 134/90 (105) 96 08/30/18 08:00 78 08/30/18 05:23 53 145/71 08/30/18 04:00 97.6 62 18 145/71 (95) 96 08/30/18 04:00 21 08/30/18 04:00 53 08/30/18 04:00 Nasal Cannula 2.0 08/30/18 00:00 67 08/30/18 00:00 Nasal Cannula 2.0 08/30/18 00:00 21 08/30/18 00:00 97.8 73 18 148/62 (90) 98 08/29/18 21:49 77 136/98 08/29/18 20:00 Nasal Cannula 2.0 08/29/18 20:00 21 08/29/18 20:00 98.1 77 18 136/98 (111) 97 08/29/18 20:00 77 08/29/18 18:06 145/71 08/29/18 16:00 63 08/29/18 16:00 2.0 08/29/18 16:00 98.2 71 18 145/71 (95) 95 08/29/18 16:00 Nasal Cannula 2.0 08/29/18 14:39 91 135/70 Intake and Output 08/29/18 08/30/18 19:00 07:00 Intake Total 240 ml 110.0 ml Balance 240 ml 110.0 ml Intake Oral 240 ml IV Total 110.0 ml # Voids 2 General Appearance: WD/WN HEENT: normocephalic, atraumatic Respiratory/Chest: lungs clear, normal breath sounds, chest wall tender Breasts: no masses Cardiovascular: normal rate Abdomen: normal bowel sounds, no organomegaly Microbiology Date/Time Source Procedure Growth Status 08/28/18 15:20 Blood Blood Culture - Preliminary NO GROWTH AFTER 24 HOURS Resulted 08/28/18 15:15 Blood Blood Culture - Preliminary NO GROWTH AFTER 24 HOURS Resulted 08/28/18 15:20 Sputum Gram Stain - Final Complete 08/28/18 15:20 Sputum Sputum Culture - Final NORMAL UPPER RESPIRATORY DAMIR PRESENT Complete 08/29/18 06:15 Urine,Clean Catch Urine Culture - Preliminary NO GROWTH AFTER 24 HOURS Resulted Laboratory Tests 08/30/18 06:45: White Blood Count 13.7H, Red Blood Count 4.80, Hemoglobin 12.4, Hematocrit 38.1 , Mean Corpuscular Volume 79L, Mean Corpuscular Hemoglobin 25.9L, Mean Corpuscular Hemoglobin Concent 32.6, Red Cell Distribution Width 12.8, Platelet Count 473H, Mean Platelet Volume 5.2L, Neutrophils (%) (Auto) 82.3H, Lymphocytes (%) (Auto) 11.3L, Monocytes (%) (Auto) 6.0, Eosinophils (%) (Auto) 0.0, Basophils (%) (Auto) 0.3, Sodium Level 144, Potassium Level 3.5, Chloride Level 107, Carbon Dioxide Level 28, Anion Gap 9, Blood Urea Nitrogen 20H, Creatinine 0.7, Estimat Glomerular Filtration Rate > 60, Glucose Level 113H, Calcium Level 8.7 Current Medications Medications (Trade) Dose Ordered Sig/Ankita Route PRN Reason Start Time Stop Time Status Last Admin Dose Admin Acetaminophen (Tylenol) 650 mg Q4H PRN ORAL Mild Pain/Temp > 100.5 08/30/18 05:00 09/29/18 04:59 08/30/18 10:14 Acetaminophen (Tylenol) 650 mg Q4H PRN RECTAL Mild Pain (Pain Scale 1-3) 08/28/18 18:30 09/26/18 18:29 Albuterol/ Ipratropium (Albuterol/ Ipratropium) 3 ml Q4H PRN HHN dyspnea 08/28/18 18:30 09/01/18 18:29 08/29/18 11:26 Azithromycin 500 mg/Dextrose 275 ml @ 275 mls/hr Q24HRS IV 08/29/18 16:00 09/03/18 16:59 08/29/18 18:01 Clonidine HCl (Catapres tab) 0.2 mg Q2H PRN ORAL SBP>170 08/28/18 18:30 09/26/18 18:29 Dextrose (Dextrose 50%) 25 ml Q30M PRN IV Hypoglycemia 08/28/18 18:00 09/26/18 09:29 Dextrose (Dextrose 50%) 50 ml Q30M PRN IV Hypoglycemia 08/28/18 18:00 09/26/18 09:29 Diltiazem HCl (Cardizem) 60 mg EVERY 8 HOURS ORAL 08/28/18 22:00 09/26/18 21:59 08/30/18 05:23 Famotidine (Pepcid I.v.) 20 mg DAILY IVP 08/29/18 09:00 09/28/18 08:59 08/30/18 09:27 Heparin Sodium (Porcine) (Heparin 5000 units/ml) 5,000 units EVERY 12 HOURS SUBQ 08/28/18 21:00 09/26/18 20:59 08/30/18 09:31 Hydralazine HCl (Apresoline) 10 mg Q2H PRN IV For High Blood Pressure 08/28/18 18:15 09/26/18 18:14 08/30/18 12:13 Levothyroxine Sodium (Synthroid) 25 mcg ACBREAKFAST ORAL 08/29/18 06:30 09/28/18 06:29 08/30/18 05:31 Lisinopril (Zestril) 10 mg BID ORAL 08/29/18 09:00 09/28/18 08:59 08/30/18 09:27 Lorazepam (Ativan 2mg/ml 1ml) 0.5 mg Q4H PRN IV For Anxiety 08/28/18 18:30 09/03/18 18:29 Methylprednisolone Sodium Succinate (Solu-MEDROL) 60 mg Q24HRS IV 08/30/18 06:00 09/28/18 00:00 08/30/18 05:24 Nitroglycerin (Ntg) 0.4 mg Q5M X 3 DOSES PRN SL Prn Chest Pain 08/28/18 17:45 09/26/18 09:29 Ondansetron HCl (Zofran) 4 mg Q6H PRN IVP Nausea & Vomiting 08/28/18 18:30 09/26/18 18:29 Piperacillin Sod/ Tazobactam Sod 3.375 gm/Sodium Chloride 110 ml @ 27.5 mls/hr EVERY 8 HOURS IVPB 08/28/18 22:00 09/01/18 13:59 08/30/18 05:28 Promethazine HCl/ Codeine (Phenergan with Codeine) 5 ml Q6H PRN ORAL cough 08/28/18 18:30 09/26/18 18:29 08/30/18 12:10 Temazepam (Restoril) 15 mg HSPRN PRN ORAL Insomnia 08/28/18 21:00 09/04/18 20:59 08/29/18 21:50 Sanjana Perez MD Aug 30, 2018 13:07
[2018-08-30] MEDS: Albuterol/Ipratropium 3ml neb HHN PRN ×3 (13:53→23:19)
[2018-08-30] MEDS: Azithromycin 500 MG in D5W 275 ML IV SCH (17:38)
[2018-08-30 20:00] VITALS: BP 141/89
[2018-08-31] VITALS: BP 166/109
[2018-08-31 04:00] VITALS: BP 124/92
[2018-08-31] MEDS: Albuterol/Ipratropium 3ml neb HHN PRN ×2 (04:38→11:19)
[2018-08-31] MEDS: Promethazine/Codeine 5ml UD ORAL PRN ×2 (04:49→11:36)
[2018-08-31] MEDS: Piperacillin/Tazobactam 3.375 GM in NS 110 ML IVPB SCH (05:44)
[2018-08-31] MEDS: Solu-MEDROL 125mg Inj IV SCH (05:44)
[2018-08-31] MEDS: dilTIAZem HCl 60mg tab ORAL SCH ×3 (05:45→22:36)
[2018-08-31] MEDS: Levothyroxine 25mcg tab ORAL SCH (05:45)
[2018-08-31 06:43] LABS: BASOPHILS % (AUTO) 0.3 % (0.0-2.0); EOSINOPHILS % (AUTO) 0.1 % (0.0-3.0); HEMATOCRIT 36.5 % (37.0-47.0); HEMOGLOBIN 12.2 G/DL (12.0-16.0); LYMPHOCYTES % (AUTO) 16.6 % (20.0-45.0); MEAN CORPUSCULAR VOLUME 79 FL (80-99); MONOCYTES % (AUTO) 5.3 % (1.0-10.0); NEUTROPHILS % (AUTO) 77.7 % (45.0-75.0); PLATELET COUNT 463 K/UL (150-450); RED BLOOD COUNT 4.61 M/UL (4.20-5.40); RED CELL DISTRIBUTION WIDTH 12.8 % (11.6-14.8); WHITE BLOOD COUNT 14.5 K/UL (4.8-10.8)
[2018-08-31 06:49] LABS: ANION GAP 9 mmol/L (5-15); BLOOD UREA NITROGEN 21 mg/dL (7-18); CALCIUM 8.4 MG/DL (8.5-10.1); CARBON DIOXIDE 27 MMOL/L (21-32); CHLORIDE 106 MMOL/L (98-107); CREATININE 0.9 MG/DL (0.55-1.30); POTASSIUM 3.1 MMOL/L (3.5-5.1); SODIUM 142 MMOL/L (136-145)
[2018-08-31 08:00] VITALS: BP 127/69
[2018-08-31] MEDS: Heparin 5000 units/ml inj SUBQ SCH ×2 (08:44→21:00)
[2018-08-31] MEDS: Lisinopril 10mg tab ORAL SCH ×2 (08:44→17:17)
--- NOTE | 2018-08-31 09:22 | Infectious Diseases Prog Note ---
Assessment/Plan Assessment/Plan ASSESSMENT: The patient is a 48-year-old female with Leukocytosis Probable Community-acquired pneumonia. Sp Cx NF 08/28/18 Leukocytosis (worsened due to the steroids). Afebrile. Dysuria UCx (-) 08/29/18 Blood Cx 08/28/18 ( NGTD ) PLAN: - Start Ceftriaxone #1/ - Continue Zithromax #/. - On D/C could switch to PO levofloxacin 500mg Qday to finish a 7 day course - 08/30/18 SP Zosyn #4 - Monitor blood culture Subjective Allergies: Coded Allergies: MORPHINE (Verified Allergy, Severe, Shortness of Breath, 08/27/18) rash, swelling of tounge, and SOB Subjective Afebrile Leukocytosis improving generally but patient on Steroids Satting well on NC Still with cough Objective Vital Signs Last 24 Hour Vital Signs Date Time Temp Pulse Resp B/P (MAP) Pulse Ox O2 Delivery O2 Flow Rate FiO2 08/31/18 08:44 127/69 08/31/18 08:16 96 Nasal Cannula 2.0 28 08/31/18 08:15 76 20 97 Nasal Cannula 2.0 28 08/31/18 08:00 97.2 72 18 127/69 (88) 95 08/31/18 05:45 68 124/92 08/31/18 04:41 75 18 95 Room Air 21 08/31/18 04:00 21 08/31/18 04:00 Nasal Cannula 2.0 08/31/18 04:00 98.0 68 20 124/92 (103) 93 08/31/18 04:00 52 08/31/18 00:00 Nasal Cannula 2.0 08/31/18 00:00 83 08/31/18 00:00 166/109 08/31/18 00:00 97.7 95 22 166/109 (128) 93 08/30/18 23:28 88 20 100 Nasal Cannula 2.0 28 08/30/18 23:18 80 20 97 Nasal Cannula 2.0 28 08/30/18 21:38 81 141/89 08/30/18 20:00 81 08/30/18 20:00 98.2 96 20 141/89 (106) 94 08/30/18 20:00 21 08/30/18 20:00 Nasal Cannula 2.0 08/30/18 19:13 185/120 08/30/18 19:00 80 18 96 Nasal Cannula 2.0 28 08/30/18 19:00 96 Nasal Cannula 2.0 28 08/30/18 18:17 165/116 08/30/18 17:40 92 22 99 Nasal Cannula 2.0 28 08/30/18 17:35 93 22 99 Nasal Cannula 2.0 28 08/30/18 16:18 85 165/126 08/30/18 16:00 2.0 08/30/18 16:00 76 08/30/18 16:00 Nasal Cannula 2.0 08/30/18 13:54 89 20 99 Nasal Cannula 2.0 28 08/30/18 13:50 98 20 100 Nasal Cannula 2.0 28 08/30/18 12:13 176/116 08/30/18 12:02 176/116 08/30/18 12:00 Nasal Cannula 2.0 08/30/18 12:00 68 08/30/18 12:00 2.0 08/30/18 09:27 134/90 Height (Feet): 5 Height (Inches): 4.00 Weight (Pounds): 195 Objective GEN: NAD HEENT: NCAT, MMM CHEST: CTAB, No W. HEART: RRR, S1, S2. ABDOMEN: Soft, obese. NT, ND NEUROLOGIC: Awake and alert. Microbiology Date/Time Source Procedure Growth Status 08/28/18 15:20 Blood Blood Culture - Preliminary NO GROWTH AFTER 48 HOURS Resulted 08/28/18 15:15 Blood Blood Culture - Preliminary NO GROWTH AFTER 48 HOURS Resulted 08/28/18 15:20 Sputum Gram Stain - Final Complete 08/28/18 15:20 Sputum Sputum Culture - Final NORMAL UPPER RESPIRATORY DAMIR PRESENT Complete 08/29/18 06:15 Urine,Clean Catch Urine Culture - Final NO GROWTH AFTER 48 HOURS Complete Laboratory Tests Test 08/31/18 06:05 White Blood Count 14.5 K/UL (4.8-10.8) H Red Blood Count 4.61 M/UL (4.20-5.40) Hemoglobin 12.2 G/DL (12.0-16.0) Hematocrit 36.5 % (37.0-47.0) L Mean Corpuscular Volume 79 FL (80-99) L Mean Corpuscular Hemoglobin 26.5 PG (27.0-31.0) L Mean Corpuscular Hemoglobin Concent 33.4 G/DL (32.0-36.0) Red Cell Distribution Width 12.8 % (11.6-14.8) Platelet Count 463 K/UL (150-450) H Mean Platelet Volume 5.1 FL (6.5-10.1) L Neutrophils (%) (Auto) 77.7 % (45.0-75.0) H Lymphocytes (%) (Auto) 16.6 % (20.0-45.0) L Monocytes (%) (Auto) 5.3 % (1.0-10.0) Eosinophils (%) (Auto) 0.1 % (0.0-3.0) Basophils (%) (Auto) 0.3 % (0.0-2.0) Sodium Level 142 MMOL/L (136-145) Potassium Level 3.1 MMOL/L (3.5-5.1) L Chloride Level 106 MMOL/L (98-107) Carbon Dioxide Level 27 MMOL/L (21-32) Anion Gap 9 mmol/L (5-15) Blood Urea Nitrogen 21 mg/dL (7-18) H Creatinine 0.9 MG/DL (0.55-1.30) Estimat Glomerular Filtration Rate > 60 mL/min (>60) Glucose Level 124 MG/DL (74-106) H Calcium Level 8.4 MG/DL (8.5-10.1) L Current Medications Medications (Trade) Dose Ordered Sig/Ankita Route PRN Reason Start Time Stop Time Status Last Admin Dose Admin Acetaminophen (Tylenol) 650 mg Q4H PRN ORAL Mild Pain/Temp > 100.5 08/30/18 05:00 09/29/18 04:59 08/31/18 05:47 Acetaminophen (Tylenol) 650 mg Q4H PRN RECTAL Mild Pain (Pain Scale 1-3) 08/28/18 18:30 09/26/18 18:29 Albuterol/ Ipratropium (Albuterol/ Ipratropium) 3 ml Q4H PRN HHN dyspnea 08/28/18 18:30 09/01/18 18:29 08/31/18 04:38 Azithromycin 500 mg/Dextrose 275 ml @ 275 mls/hr Q24HRS IV 08/29/18 16:00 09/03/18 16:59 08/30/18 17:38 Clonidine HCl (Catapres tab) 0.2 mg Q2H PRN ORAL SBP>170 08/28/18 18:30 09/26/18 18:29 08/31/18 00:00 Dextrose (Dextrose 50%) 25 ml Q30M PRN IV Hypoglycemia 08/28/18 18:00 09/26/18 09:29 Dextrose (Dextrose 50%) 50 ml Q30M PRN IV Hypoglycemia 08/28/18 18:00 09/26/18 09:29 Diltiazem HCl (Cardizem) 60 mg EVERY 8 HOURS ORAL 08/28/18 22:00 09/26/18 21:59 08/31/18 05:45 Famotidine (Pepcid I.v.) 20 mg DAILY IVP 08/29/18 09:00 09/28/18 08:59 08/31/18 08:44 Heparin Sodium (Porcine) (Heparin 5000 units/ml) 5,000 units EVERY 12 HOURS SUBQ 08/28/18 21:00 09/26/18 20:59 08/31/18 08:44 Hydralazine HCl (Apresoline) 10 mg Q2H PRN IV For High Blood Pressure 08/28/18 18:15 09/26/18 18:14 08/30/18 19:13 Levothyroxine Sodium (Synthroid) 25 mcg ACBREAKFAST ORAL 08/29/18 06:30 09/28/18 06:29 08/31/18 05:45 Lisinopril (Zestril) 10 mg BID ORAL 08/29/18 09:00 09/28/18 08:59 08/31/18 08:44 Lorazepam (Ativan 2mg/ml 1ml) 0.5 mg Q4H PRN IV For Anxiety 08/28/18 18:30 09/03/18 18:29 Methylprednisolone Sodium Succinate (Solu-MEDROL) 60 mg Q24HRS IV 08/30/18 06:00 09/28/18 00:00 08/31/18 05:44 Nitroglycerin (Ntg) 0.4 mg Q5M X 3 DOSES PRN SL Prn Chest Pain 08/28/18 17:45 09/26/18 09:29 Ondansetron HCl (Zofran) 4 mg Q6H PRN IVP Nausea & Vomiting 08/28/18 18:30 09/26/18 18:29 Piperacillin Sod/ Tazobactam Sod 3.375 gm/Sodium Chloride 110 ml @ 27.5 mls/hr EVERY 8 HOURS IVPB 08/28/18 22:00 09/01/18 13:59 08/31/18 05:44 Potassium Chloride (K-Dur) 40 meq ONCE ORAL 08/31/18 08:30 08/31/18 10:00 08/31/18 08:43 Promethazine HCl/ Codeine (Phenergan with Codeine) 5 ml Q6H PRN ORAL cough 08/28/18 18:30 09/26/18 18:29 08/31/18 04:49 Temazepam (Restoril) 15 mg HSPRN PRN ORAL Insomnia 08/28/18 21:00 09/04/18 20:59 08/29/18 21:50 Jw Bush MD Aug 31, 2018 09:22
[2018-08-31] MEDS ORDERED: cefTRIAXone 1 GM in D5W 55 ML IVPB SCH (09:30)
[2018-08-31] MEDS: cefTRIAXone 1 GM in D5W 55 ML IVPB SCH (11:37)
[2018-08-31 12:00] VITALS: BP 144/108
--- NOTE | 2018-08-31 13:44 | General Progress Note ---
Assessment/Plan Problem List: (1) SOB (shortness of breath) ICD Codes: R06.02 - Shortness of breath SNOMED: 751586399 (2) HTN (hypertension) ICD Codes: I10 - Essential (primary) hypertension SNOMED: 92751121 (3) UTI (urinary tract infection) ICD Codes: N39.0 - Urinary tract infection, site not specified SNOMED: 77323893 (4) Acute respiratory failure ICD Codes: J96.00 - Acute respiratory failure, unspecified whether with hypoxia or hypercapnia SNOMED: 34495764 (5) Status asthmaticus ICD Codes: J45.902 - Unspecified asthma with status asthmaticus SNOMED: 488450253 Qualifiers: Qualified Codes: J45.52 - Severe persistent asthma with status asthmaticus Status: stable, progressing Assessment/Plan: o2 pulm tx abx cbc bmp am pending endoscopy dc plan if clear Subjective Constitutional: Reports: weakness Respiratory: Reports: shortness of breath Allergies: Coded Allergies: MORPHINE (Verified Allergy, Severe, Shortness of Breath, 08/27/18) rash, swelling of tounge, and SOB All Systems: reviewed and negative except above Subjective o2nc calm Objective Last 24 Hour Vital Signs Date Time Temp Pulse Resp B/P (MAP) Pulse Ox O2 Delivery O2 Flow Rate FiO2 08/31/18 12:00 97.7 79 18 144/108 (120) 97 08/31/18 11:21 79 20 99 Nasal Cannula 2.0 28 08/31/18 11:20 80 18 97 Room Air 21 08/31/18 08:45 Nasal Cannula 2.0 08/31/18 08:44 127/69 08/31/18 08:16 96 Nasal Cannula 2.0 28 08/31/18 08:15 76 20 97 Nasal Cannula 2.0 28 08/31/18 08:00 97.2 72 18 127/69 (88) 95 08/31/18 08:00 67 08/31/18 08:00 2.0 08/31/18 05:45 68 124/92 08/31/18 04:41 75 18 95 Room Air 21 08/31/18 04:00 21 08/31/18 04:00 Nasal Cannula 2.0 08/31/18 04:00 98.0 68 20 124/92 (103) 93 08/31/18 04:00 52 08/31/18 00:00 Nasal Cannula 2.0 08/31/18 00:00 83 08/31/18 00:00 166/109 08/31/18 00:00 97.7 95 22 166/109 (128) 93 08/30/18 23:28 88 20 100 Nasal Cannula 2.0 28 08/30/18 23:18 80 20 97 Nasal Cannula 2.0 28 08/30/18 21:38 81 141/89 08/30/18 20:00 81 08/30/18 20:00 98.2 96 20 141/89 (106) 94 08/30/18 20:00 21 08/30/18 20:00 Nasal Cannula 2.0 08/30/18 19:13 185/120 08/30/18 19:00 80 18 96 Nasal Cannula 2.0 28 08/30/18 19:00 96 Nasal Cannula 2.0 28 08/30/18 18:17 165/116 08/30/18 17:40 92 22 99 Nasal Cannula 2.0 28 08/30/18 17:35 93 22 99 Nasal Cannula 2.0 28 08/30/18 16:18 85 165/126 08/30/18 16:00 2.0 08/30/18 16:00 76 08/30/18 16:00 Nasal Cannula 2.0 08/30/18 13:54 89 20 99 Nasal Cannula 2.0 28 08/30/18 13:50 98 20 100 Nasal Cannula 2.0 28 Intake and Output 08/30/18 08/31/18 19:00 07:00 Intake Total 810 ml Balance 810 ml Intake Oral 810 ml # Voids 3 2 Laboratory Tests 08/31/18 06:05: White Blood Count 14.5H, Red Blood Count 4.61, Hemoglobin 12.2, Hematocrit 36.5L , Mean Corpuscular Volume 79L, Mean Corpuscular Hemoglobin 26.5L, Mean Corpuscular Hemoglobin Concent 33.4, Red Cell Distribution Width 12.8, Platelet Count 463H, Mean Platelet Volume 5.1L, Neutrophils (%) (Auto) 77.7H, Lymphocytes (%) (Auto) 16.6L, Monocytes (%) (Auto) 5.3, Eosinophils (%) (Auto) 0.1, Basophils (%) (Auto) 0.3, Sodium Level 142, Potassium Level 3.1L, Chloride Level 106, Carbon Dioxide Level 27, Anion Gap 9, Blood Urea Nitrogen 21H, Creatinine 0.9, Estimat Glomerular Filtration Rate > 60, Glucose Level 124H, Calcium Level 8.4L Height (Feet): 5 Height (Inches): 4.00 Weight (Pounds): 195 General Appearance: lethargic EENT: normal ENT inspection Neck: normal alignment Cardiovascular: normal peripheral pulses, normal rate, regular rhythm Respiratory/Chest: chest wall non-tender, lungs clear, expiratory wheezing Abdomen: normal bowel sounds, non tender, soft Extremities: normal inspection Edema: no edema noted Arm (L), no edema noted Arm (R), no edema noted Leg (L), no edema noted Leg (R), no edema noted Pedal (L), no edema noted Pedal (R), no edema noted Generalized Neurologic: responsive, motor weakness Skin: normal pigmentation, warm/dry Coy Conley DO Aug 31, 2018 13:44
--- NOTE | 2018-08-31 14:14 | Pulmonology Progress Note ---
Assessment/Plan Problems: (1) Status asthmaticus (2) Hypothyroidism (3) Acute respiratory failure Assessment/Plan improving, less cough taper steroids continue abx sputum cultures are negative Subjective ROS Limited/Unobtainable: No Constitutional: Reports: no symptoms HEENT: Repors: no symptoms Allergies: Coded Allergies: MORPHINE (Verified Allergy, Severe, Shortness of Breath, 08/27/18) rash, swelling of tounge, and SOB Objective Last 24 Hour Vital Signs Date Time Temp Pulse Resp B/P (MAP) Pulse Ox O2 Delivery O2 Flow Rate FiO2 08/31/18 12:00 97.7 79 18 144/108 (120) 97 08/31/18 11:21 79 20 99 Nasal Cannula 2.0 28 08/31/18 11:20 80 18 97 Room Air 21 08/31/18 08:45 Nasal Cannula 2.0 08/31/18 08:44 127/69 08/31/18 08:16 96 Nasal Cannula 2.0 28 08/31/18 08:15 76 20 97 Nasal Cannula 2.0 28 08/31/18 08:00 97.2 72 18 127/69 (88) 95 08/31/18 08:00 67 08/31/18 08:00 2.0 08/31/18 05:45 68 124/92 08/31/18 04:41 75 18 95 Room Air 21 08/31/18 04:00 21 08/31/18 04:00 Nasal Cannula 2.0 08/31/18 04:00 98.0 68 20 124/92 (103) 93 08/31/18 04:00 52 08/31/18 00:00 Nasal Cannula 2.0 08/31/18 00:00 83 08/31/18 00:00 166/109 08/31/18 00:00 97.7 95 22 166/109 (128) 93 08/30/18 23:28 88 20 100 Nasal Cannula 2.0 28 08/30/18 23:18 80 20 97 Nasal Cannula 2.0 28 08/30/18 21:38 81 141/89 08/30/18 20:00 81 08/30/18 20:00 98.2 96 20 141/89 (106) 94 08/30/18 20:00 21 08/30/18 20:00 Nasal Cannula 2.0 08/30/18 19:13 185/120 08/30/18 19:00 80 18 96 Nasal Cannula 2.0 28 08/30/18 19:00 96 Nasal Cannula 2.0 28 08/30/18 18:17 165/116 08/30/18 17:40 92 22 99 Nasal Cannula 2.0 28 08/30/18 17:35 93 22 99 Nasal Cannula 2.0 28 08/30/18 16:18 85 165/126 08/30/18 16:00 2.0 08/30/18 16:00 76 08/30/18 16:00 Nasal Cannula 2.0 Intake and Output 08/30/18 08/31/18 19:00 07:00 Intake Total 810 ml Balance 810 ml Intake Oral 810 ml # Voids 3 2 General Appearance: WD/WN HEENT: normocephalic, anicteric Respiratory/Chest: chest wall non-tender, no respiratory distress Cardiovascular: normal peripheral pulses, regular rhythm Abdomen: normal bowel sounds, no mass Extremities: no cyanosis Microbiology Date/Time Source Procedure Growth Status 08/28/18 15:20 Blood Blood Culture - Preliminary NO GROWTH AFTER 48 HOURS Resulted 08/28/18 15:15 Blood Blood Culture - Preliminary NO GROWTH AFTER 48 HOURS Resulted 08/28/18 15:20 Sputum Gram Stain - Final Complete 08/28/18 15:20 Sputum Sputum Culture - Final NORMAL UPPER RESPIRATORY DAMIR PRESENT Complete 08/29/18 06:15 Urine,Clean Catch Urine Culture - Final NO GROWTH AFTER 48 HOURS Complete Laboratory Tests 08/31/18 06:05: White Blood Count 14.5H, Red Blood Count 4.61, Hemoglobin 12.2, Hematocrit 36.5L , Mean Corpuscular Volume 79L, Mean Corpuscular Hemoglobin 26.5L, Mean Corpuscular Hemoglobin Concent 33.4, Red Cell Distribution Width 12.8, Platelet Count 463H, Mean Platelet Volume 5.1L, Neutrophils (%) (Auto) 77.7H, Lymphocytes (%) (Auto) 16.6L, Monocytes (%) (Auto) 5.3, Eosinophils (%) (Auto) 0.1, Basophils (%) (Auto) 0.3, Sodium Level 142, Potassium Level 3.1L, Chloride Level 106, Carbon Dioxide Level 27, Anion Gap 9, Blood Urea Nitrogen 21H, Creatinine 0.9, Estimat Glomerular Filtration Rate > 60, Glucose Level 124H, Calcium Level 8.4L Current Medications Medications (Trade) Dose Ordered Sig/Ankita Route PRN Reason Start Time Stop Time Status Last Admin Dose Admin Acetaminophen (Tylenol) 650 mg Q4H PRN ORAL Mild Pain/Temp > 100.5 08/30/18 05:00 09/29/18 04:59 08/31/18 05:47 Acetaminophen (Tylenol) 650 mg Q4H PRN RECTAL Mild Pain (Pain Scale 1-3) 08/28/18 18:30 09/26/18 18:29 Albuterol/ Ipratropium (Albuterol/ Ipratropium) 3 ml Q4H PRN HHN dyspnea 08/28/18 18:30 09/01/18 18:29 08/31/18 11:19 Azithromycin (Zithromax) 500 mg DAILY ORAL 08/31/18 15:00 09/03/18 08:59 Ceftriaxone Sodium 1 gm/ Dextrose 55 ml @ 110 mls/hr Q24H IVPB 08/31/18 10:30 09/07/18 10:29 08/31/18 11:37 Clonidine HCl (Catapres tab) 0.2 mg Q2H PRN ORAL SBP>170 08/28/18 18:30 09/26/18 18:29 08/31/18 00:00 Dextrose (Dextrose 50%) 25 ml Q30M PRN IV Hypoglycemia 08/28/18 18:00 09/26/18 09:29 Dextrose (Dextrose 50%) 50 ml Q30M PRN IV Hypoglycemia 08/28/18 18:00 09/26/18 09:29 Diltiazem HCl (Cardizem) 60 mg EVERY 8 HOURS ORAL 08/28/18 22:00 09/26/18 21:59 08/31/18 05:45 Famotidine (Pepcid I.v.) 20 mg DAILY IVP 08/29/18 09:00 09/28/18 08:59 08/31/18 08:44 Heparin Sodium (Porcine) (Heparin 5000 units/ml) 5,000 units EVERY 12 HOURS SUBQ 08/28/18 21:00 09/26/18 20:59 08/31/18 08:44 Hydralazine HCl (Apresoline) 10 mg Q2H PRN IV For High Blood Pressure 08/28/18 18:15 09/26/18 18:14 08/30/18 19:13 Levothyroxine Sodium (Synthroid) 25 mcg ACBREAKFAST ORAL 08/29/18 06:30 09/28/18 06:29 08/31/18 05:45 Lisinopril (Zestril) 10 mg BID ORAL 08/29/18 09:00 09/28/18 08:59 08/31/18 08:44 Lorazepam (Ativan 2mg/ml 1ml) 0.5 mg Q4H PRN IV For Anxiety 08/28/18 18:30 09/03/18 18:29 Methylprednisolone Sodium Succinate (Solu-MEDROL) 60 mg Q24HRS IV 08/30/18 06:00 09/28/18 00:00 08/31/18 05:44 Nitroglycerin (Ntg) 0.4 mg Q5M X 3 DOSES PRN SL Prn Chest Pain 08/28/18 17:45 09/26/18 09:29 Ondansetron HCl (Zofran) 4 mg Q6H PRN IVP Nausea & Vomiting 08/28/18 18:30 09/26/18 18:29 Promethazine HCl/ Codeine (Phenergan with Codeine) 5 ml Q6H PRN ORAL cough 08/28/18 18:30 09/26/18 18:29 08/31/18 11:36 Temazepam (Restoril) 15 mg HSPRN PRN ORAL Insomnia 08/28/18 21:00 09/04/18 20:59 08/29/18 21:50 Sanjana Perez MD Aug 31, 2018 14:14
[2018-08-31] MEDS: Azithromycin 250mg tab ORAL SCH (14:24)
[2018-08-31 16:00] VITALS: BP 166/117
--- NOTE | 2018-08-31 16:29 | Cardiac Electrophysiology PN ---
Assessment/Plan Assessment/Plan 1. Accelerated hypertension. Better on Cardizem 60 mg every 6 hours, Lisinopril 10 daily and p.r.n. clonidine. 2. Respiratory failure with severe asthma. Now off BiPAP. FU Dr. Perez. 3. History of thyroidectomy, on levothyroxine. 4. Obesity. 5. Pt says is scheduled for EGD but no GI on the case yet DW RN Subjective Subjective No CP or SOB.Has headache. Says scheduled for EGD. Objective Last 24 Hour Vital Signs Date Time Temp Pulse Resp B/P (MAP) Pulse Ox O2 Delivery O2 Flow Rate FiO2 08/31/18 16:00 97.8 87 18 166/117 (133) 95 08/31/18 14:24 91 182/119 08/31/18 12:00 97.7 79 18 144/108 (120) 97 08/31/18 12:00 2.0 08/31/18 12:00 66 08/31/18 11:21 79 20 99 Nasal Cannula 2.0 28 08/31/18 11:20 80 18 97 Room Air 21 08/31/18 08:45 Nasal Cannula 2.0 08/31/18 08:44 127/69 08/31/18 08:16 96 Nasal Cannula 2.0 28 08/31/18 08:15 76 20 97 Nasal Cannula 2.0 28 08/31/18 08:00 97.2 72 18 127/69 (88) 95 08/31/18 08:00 67 08/31/18 08:00 2.0 08/31/18 05:45 68 124/92 08/31/18 04:41 75 18 95 Room Air 21 08/31/18 04:00 21 08/31/18 04:00 Nasal Cannula 2.0 08/31/18 04:00 98.0 68 20 124/92 (103) 93 08/31/18 04:00 52 08/31/18 00:00 Nasal Cannula 2.0 08/31/18 00:00 83 08/31/18 00:00 166/109 08/31/18 00:00 97.7 95 22 166/109 (128) 93 08/30/18 23:28 88 20 100 Nasal Cannula 2.0 28 08/30/18 23:18 80 20 97 Nasal Cannula 2.0 28 08/30/18 21:38 81 141/89 08/30/18 20:00 81 08/30/18 20:00 98.2 96 20 141/89 (106) 94 08/30/18 20:00 21 08/30/18 20:00 Nasal Cannula 2.0 08/30/18 19:13 185/120 08/30/18 19:00 80 18 96 Nasal Cannula 2.0 28 08/30/18 19:00 96 Nasal Cannula 2.0 28 08/30/18 18:17 165/116 08/30/18 17:40 92 22 99 Nasal Cannula 2.0 28 08/30/18 17:35 93 22 99 Nasal Cannula 2.0 28 Intake and Output 08/30/18 08/31/18 19:00 07:00 Intake Total 810 ml Balance 810 ml Intake Oral 810 ml # Voids 3 2 Laboratory Tests Test 08/31/18 06:05 White Blood Count 14.5 K/UL (4.8-10.8) H Red Blood Count 4.61 M/UL (4.20-5.40) Hemoglobin 12.2 G/DL (12.0-16.0) Hematocrit 36.5 % (37.0-47.0) L Mean Corpuscular Volume 79 FL (80-99) L Mean Corpuscular Hemoglobin 26.5 PG (27.0-31.0) L Mean Corpuscular Hemoglobin Concent 33.4 G/DL (32.0-36.0) Red Cell Distribution Width 12.8 % (11.6-14.8) Platelet Count 463 K/UL (150-450) H Mean Platelet Volume 5.1 FL (6.5-10.1) L Neutrophils (%) (Auto) 77.7 % (45.0-75.0) H Lymphocytes (%) (Auto) 16.6 % (20.0-45.0) L Monocytes (%) (Auto) 5.3 % (1.0-10.0) Eosinophils (%) (Auto) 0.1 % (0.0-3.0) Basophils (%) (Auto) 0.3 % (0.0-2.0) Sodium Level 142 MMOL/L (136-145) Potassium Level 3.1 MMOL/L (3.5-5.1) L Chloride Level 106 MMOL/L (98-107) Carbon Dioxide Level 27 MMOL/L (21-32) Anion Gap 9 mmol/L (5-15) Blood Urea Nitrogen 21 mg/dL (7-18) H Creatinine 0.9 MG/DL (0.55-1.30) Estimat Glomerular Filtration Rate > 60 mL/min (>60) Glucose Level 124 MG/DL (74-106) H Calcium Level 8.4 MG/DL (8.5-10.1) L Microbiology Date/Time Source Procedure Growth Status 08/29/18 06:15 Urine,Clean Catch Urine Culture - Final NO GROWTH AFTER 48 HOURS Complete Objective HEAD AND NECK: No JVD. Status post thyroidectomy . LUNGS: Coarse rhonchi and wheezes. CARDIOVASCULAR: Regular S1-S2 ABDOMEN: Obese. EXTREMITIES: No pitting edema. Martell Mehta MD Aug 31, 2018 16:29
[2018-08-31 20:00] VITALS: BP 162/125
[2018-09-01] VITALS: BP 150/110
[2018-09-01 04:00] VITALS: BP 155/111
[2018-09-01] MEDS: Solu-MEDROL 125mg Inj IV SCH (05:45)
[2018-09-01] MEDS: Promethazine/Codeine 5ml UD ORAL PRN ×2 (05:46→13:57)
[2018-09-01] MEDS: Levothyroxine 25mcg tab ORAL SCH (05:46)
[2018-09-01] MEDS: dilTIAZem HCl 60mg tab ORAL SCH ×2 (05:46→13:12)
[2018-09-01 06:42] LABS: BASOPHILS % (AUTO) 0.8 % (0.0-2.0); EOSINOPHILS % (AUTO) 0.2 % (0.0-3.0); HEMATOCRIT 39.3 % (37.0-47.0); HEMOGLOBIN 13.1 G/DL (12.0-16.0); LYMPHOCYTES % (AUTO) 15.7 % (20.0-45.0); MEAN CORPUSCULAR VOLUME 79 FL (80-99); MONOCYTES % (AUTO) 6.3 % (1.0-10.0); NEUTROPHILS % (AUTO) 77.1 % (45.0-75.0); PLATELET COUNT 470 K/UL (150-450); RED BLOOD COUNT 4.95 M/UL (4.20-5.40); RED CELL DISTRIBUTION WIDTH 12.7 % (11.6-14.8); WHITE BLOOD COUNT 14.6 K/UL (4.8-10.8)
[2018-09-01 06:45] LABS: ANION GAP 10 mmol/L (5-15); BLOOD UREA NITROGEN 19 mg/dL (7-18); CALCIUM 8.4 MG/DL (8.5-10.1); CARBON DIOXIDE 28 MMOL/L (21-32); CHLORIDE 107 MMOL/L (98-107); CREATININE 0.7 MG/DL (0.55-1.30); POTASSIUM 3.3 MMOL/L (3.5-5.1); SODIUM 144 MMOL/L (136-145)
[2018-09-01 08:00] VITALS: BP 135/115
[2018-09-01] MEDS: Heparin 5000 units/ml inj SUBQ SCH (08:43)
[2018-09-01] MEDS: Lisinopril 10mg tab ORAL SCH ×2 (08:43→18:11)
[2018-09-01] MEDS: Azithromycin 250mg tab ORAL SCH (08:43)
[2018-09-01] MEDS: cefTRIAXone 1 GM in D5W 55 ML IVPB SCH (10:58)
[2018-09-01 12:00] VITALS: BP_SYST 159; BP_DIAS 118; BP_DIAS 91
--- NOTE | 2018-09-01 12:48 | Pulmonology Progress Note ---
Assessment/Plan Problems: (1) Status asthmaticus (2) Hypothyroidism (3) Acute respiratory failure Assessment/Plan improving, less cough taper steroids sputum cultures are negative Subjective ROS Limited/Unobtainable: No Constitutional: Reports: no symptoms HEENT: Repors: no symptoms Respiratory: Reports: no symptoms Allergies: Coded Allergies: MORPHINE (Verified Allergy, Severe, Shortness of Breath, 08/27/18) rash, swelling of tounge, and SOB Objective Last 24 Hour Vital Signs Date Time Temp Pulse Resp B/P (MAP) Pulse Ox O2 Delivery O2 Flow Rate FiO2 09/01/18 12:00 98.0 65 20 159/118 (132) 99 09/01/18 12:00 2.0 09/01/18 09:00 Nasal Cannula 2.0 09/01/18 08:43 135/95 09/01/18 08:35 76 20 98 Nasal Cannula 2.0 28 09/01/18 08:35 97 Nasal Cannula 2.0 28 09/01/18 08:00 61 09/01/18 08:00 2.0 09/01/18 08:00 97.9 77 18 135/115 (122) 100 09/01/18 05:46 79 155/111 09/01/18 04:00 2.0 09/01/18 04:00 98.6 79 19 155/111 (126) 97 09/01/18 04:00 56 09/01/18 00:00 57 09/01/18 00:00 2.0 09/01/18 00:00 98.5 71 19 150/110 (123) 98 08/31/18 22:36 78 162/125 08/31/18 21:00 2.0 08/31/18 21:00 Nasal Cannula 2.0 08/31/18 20:00 71 08/31/18 20:00 98.3 78 20 162/125 (137) 97 08/31/18 18:40 80 20 98 Nasal Cannula 2.0 28 08/31/18 18:40 97 Nasal Cannula 2.0 28 08/31/18 17:17 163/126 08/31/18 16:00 97.8 87 18 166/117 (133) 95 08/31/18 16:00 70 08/31/18 16:00 2.0 08/31/18 14:24 91 182/119 Intake and Output 08/31/18 09/01/18 18:59 06:59 Intake Total 680 ml Balance 680 ml Intake Oral 680 ml # Voids 1 2 General Appearance: WD/WN HEENT: normocephalic, atraumatic Respiratory/Chest: chest wall non-tender, lungs clear Cardiovascular: normal peripheral pulses, normal rate Abdomen: soft, non tender, no organomegaly Skin: no ulcers Laboratory Tests 09/01/18 05:35: White Blood Count 14.6H, Red Blood Count 4.95, Hemoglobin 13.1, Hematocrit 39.3 , Mean Corpuscular Volume 79L, Mean Corpuscular Hemoglobin 26.4L, Mean Corpuscular Hemoglobin Concent 33.3, Red Cell Distribution Width 12.7, Platelet Count 470H, Mean Platelet Volume 5.0L, Neutrophils (%) (Auto) 77.1H, Lymphocytes (%) (Auto) 15.7L, Monocytes (%) (Auto) 6.3, Eosinophils (%) (Auto) 0.2, Basophils (%) (Auto) 0.8, Sodium Level 144, Potassium Level 3.3L, Chloride Level 107, Carbon Dioxide Level 28, Anion Gap 10, Blood Urea Nitrogen 19H, Creatinine 0.7, Estimat Glomerular Filtration Rate > 60, Glucose Level 117H, Calcium Level 8.4L Current Medications Medications (Trade) Dose Ordered Sig/Ankita Route PRN Reason Start Time Stop Time Status Last Admin Dose Admin Acetaminophen (Tylenol) 650 mg Q4H PRN ORAL Mild Pain/Temp > 100.5 08/30/18 05:00 09/29/18 04:59 09/01/18 08:43 Acetaminophen (Tylenol) 650 mg Q4H PRN RECTAL Mild Pain (Pain Scale 1-3) 08/28/18 18:30 09/26/18 18:29 Albuterol/ Ipratropium (Albuterol/ Ipratropium) 3 ml Q4H PRN HHN dyspnea 08/28/18 18:30 09/01/18 18:29 08/31/18 11:19 Azithromycin (Zithromax) 500 mg DAILY ORAL 08/31/18 15:00 09/03/18 08:59 09/01/18 08:43 Ceftriaxone Sodium 1 gm/ Dextrose 55 ml @ 110 mls/hr Q24H IVPB 08/31/18 10:30 09/07/18 10:29 09/01/18 10:58 Clonidine HCl (Catapres tab) 0.2 mg Q2H PRN ORAL SBP>170 08/28/18 18:30 09/26/18 18:29 08/31/18 00:00 Dextrose (Dextrose 50%) 25 ml Q30M PRN IV Hypoglycemia 08/28/18 18:00 09/26/18 09:29 Dextrose (Dextrose 50%) 50 ml Q30M PRN IV Hypoglycemia 08/28/18 18:00 09/26/18 09:29 Diltiazem HCl (Cardizem) 60 mg EVERY 8 HOURS ORAL 08/28/18 22:00 09/26/18 21:59 09/01/18 05:46 Famotidine (Pepcid I.v.) 20 mg DAILY IVP 08/29/18 09:00 09/28/18 08:59 09/01/18 08:43 Heparin Sodium (Porcine) (Heparin 5000 units/ml) 5,000 units EVERY 12 HOURS SUBQ 08/28/18 21:00 09/26/18 20:59 08/31/18 08:44 Hydralazine HCl (Apresoline) 10 mg Q2H PRN IV For High Blood Pressure 08/28/18 18:15 09/26/18 18:14 08/30/18 19:13 Levothyroxine Sodium (Synthroid) 25 mcg ACBREAKFAST ORAL 08/29/18 06:30 09/28/18 06:29 09/01/18 05:46 Lisinopril (Zestril) 10 mg BID ORAL 08/29/18 09:00 09/28/18 08:59 09/01/18 08:43 Lorazepam (Ativan 2mg/ml 1ml) 0.5 mg Q4H PRN IV For Anxiety 08/28/18 18:30 09/03/18 18:29 Methylprednisolone Sodium Succinate (Solu-MEDROL) 60 mg Q24HRS IV 08/30/18 06:00 09/28/18 00:00 09/01/18 05:45 Nitroglycerin (Ntg) 0.4 mg Q5M X 3 DOSES PRN SL Prn Chest Pain 08/28/18 17:45 09/26/18 09:29 Ondansetron HCl (Zofran) 4 mg Q6H PRN IVP Nausea & Vomiting 08/28/18 18:30 09/26/18 18:29 Potassium Chloride (K-Dur) 40 meq ONCE ORAL 09/01/18 12:30 09/01/18 13:30 Promethazine HCl/ Codeine (Phenergan with Codeine) 5 ml Q6H PRN ORAL cough 08/28/18 18:30 09/26/18 18:29 09/01/18 05:46 Temazepam (Restoril) 15 mg HSPRN PRN ORAL Insomnia 08/28/18 21:00 09/04/18 20:59 08/31/18 22:36 Sanjana Perez MD Sep 01, 2018 12:48
--- NOTE | 2018-09-01 13:10 | Infectious Diseases Prog Note ---
Assessment/Plan Assessment/Plan ASSESSMENT: The patient is a 48-year-old female with Leukocytosis Probable Community-acquired pneumonia. Sp Cx NF 08/28/18 Leukocytosis (worsened due to the steroids). Afebrile. Dysuria UCx (-) 08/29/18 Blood Cx 08/28/18 ( NGTD ) PLAN: - Start Ceftriaxone #2/4 - Continue Zithromax #5/7. - On D/C could switch to PO levofloxacin 500mg Qday to finish a 7 day course - 08/30/18 SP Zosyn #4 - Monitor blood culture Subjective Allergies: Coded Allergies: MORPHINE (Verified Allergy, Severe, Shortness of Breath, 08/27/18) rash, swelling of tounge, and SOB Subjective Afebrile Leukocytosis stable Satting well on NC Still with cough Objective Vital Signs Last 24 Hour Vital Signs Date Time Temp Pulse Resp B/P (MAP) Pulse Ox O2 Delivery O2 Flow Rate FiO2 09/01/18 12:00 98.0 65 20 159/118 (132) 99 09/01/18 12:00 2.0 09/01/18 09:00 Nasal Cannula 2.0 09/01/18 08:43 135/95 09/01/18 08:35 76 20 98 Nasal Cannula 2.0 28 09/01/18 08:35 97 Nasal Cannula 2.0 28 09/01/18 08:00 61 09/01/18 08:00 2.0 09/01/18 08:00 97.9 77 18 135/115 (122) 100 09/01/18 05:46 79 155/111 09/01/18 04:00 2.0 09/01/18 04:00 98.6 79 19 155/111 (126) 97 09/01/18 04:00 56 09/01/18 00:00 57 09/01/18 00:00 2.0 09/01/18 00:00 98.5 71 19 150/110 (123) 98 08/31/18 22:36 78 162/125 08/31/18 21:00 2.0 08/31/18 21:00 Nasal Cannula 2.0 08/31/18 20:00 71 08/31/18 20:00 98.3 78 20 162/125 (137) 97 08/31/18 18:40 80 20 98 Nasal Cannula 2.0 28 08/31/18 18:40 97 Nasal Cannula 2.0 28 08/31/18 17:17 163/126 08/31/18 16:00 97.8 87 18 166/117 (133) 95 08/31/18 16:00 70 08/31/18 16:00 2.0 08/31/18 14:24 91 182/119 Height (Feet): 5 Height (Inches): 4.00 Weight (Pounds): 198 Objective GEN: NAD HEENT: NCAT, MMM CHEST: Mild wheezing HEART: RRR, S1, S2. ABDOMEN: Soft, obese. NT, ND NEUROLOGIC: Awake and alert. Laboratory Tests Test 09/01/18 05:35 White Blood Count 14.6 K/UL (4.8-10.8) H Red Blood Count 4.95 M/UL (4.20-5.40) Hemoglobin 13.1 G/DL (12.0-16.0) Hematocrit 39.3 % (37.0-47.0) Mean Corpuscular Volume 79 FL (80-99) L Mean Corpuscular Hemoglobin 26.4 PG (27.0-31.0) L Mean Corpuscular Hemoglobin Concent 33.3 G/DL (32.0-36.0) Red Cell Distribution Width 12.7 % (11.6-14.8) Platelet Count 470 K/UL (150-450) H Mean Platelet Volume 5.0 FL (6.5-10.1) L Neutrophils (%) (Auto) 77.1 % (45.0-75.0) H Lymphocytes (%) (Auto) 15.7 % (20.0-45.0) L Monocytes (%) (Auto) 6.3 % (1.0-10.0) Eosinophils (%) (Auto) 0.2 % (0.0-3.0) Basophils (%) (Auto) 0.8 % (0.0-2.0) Sodium Level 144 MMOL/L (136-145) Potassium Level 3.3 MMOL/L (3.5-5.1) L Chloride Level 107 MMOL/L (98-107) Carbon Dioxide Level 28 MMOL/L (21-32) Anion Gap 10 mmol/L (5-15) Blood Urea Nitrogen 19 mg/dL (7-18) H Creatinine 0.7 MG/DL (0.55-1.30) Estimat Glomerular Filtration Rate > 60 mL/min (>60) Glucose Level 117 MG/DL (74-106) H Calcium Level 8.4 MG/DL (8.5-10.1) L Current Medications Medications (Trade) Dose Ordered Sig/Ankita Route PRN Reason Start Time Stop Time Status Last Admin Dose Admin Acetaminophen (Tylenol) 650 mg Q4H PRN ORAL Mild Pain/Temp > 100.5 08/30/18 05:00 09/29/18 04:59 09/01/18 08:43 Acetaminophen (Tylenol) 650 mg Q4H PRN RECTAL Mild Pain (Pain Scale 1-3) 08/28/18 18:30 09/26/18 18:29 Albuterol/ Ipratropium (Albuterol/ Ipratropium) 3 ml Q4H PRN HHN dyspnea 08/28/18 18:30 09/01/18 18:29 08/31/18 11:19 Azithromycin (Zithromax) 500 mg DAILY ORAL 08/31/18 15:00 09/03/18 08:59 09/01/18 08:43 Ceftriaxone Sodium 1 gm/ Dextrose 55 ml @ 110 mls/hr Q24H IVPB 08/31/18 10:30 09/07/18 10:29 09/01/18 10:58 Clonidine HCl (Catapres tab) 0.2 mg Q2H PRN ORAL SBP>170 08/28/18 18:30 09/26/18 18:29 08/31/18 00:00 Dextrose (Dextrose 50%) 25 ml Q30M PRN IV Hypoglycemia 08/28/18 18:00 09/26/18 09:29 Dextrose (Dextrose 50%) 50 ml Q30M PRN IV Hypoglycemia 08/28/18 18:00 09/26/18 09:29 Diltiazem HCl (Cardizem) 60 mg EVERY 8 HOURS ORAL 08/28/18 22:00 09/26/18 21:59 09/01/18 05:46 Famotidine (Pepcid I.v.) 20 mg DAILY IVP 08/29/18 09:00 09/28/18 08:59 09/01/18 08:43 Heparin Sodium (Porcine) (Heparin 5000 units/ml) 5,000 units EVERY 12 HOURS SUBQ 08/28/18 21:00 09/26/18 20:59 08/31/18 08:44 Hydralazine HCl (Apresoline) 10 mg Q2H PRN IV For High Blood Pressure 08/28/18 18:15 09/26/18 18:14 08/30/18 19:13 Levothyroxine Sodium (Synthroid) 25 mcg ACBREAKFAST ORAL 08/29/18 06:30 09/28/18 06:29 09/01/18 05:46 Lisinopril (Zestril) 10 mg BID ORAL 08/29/18 09:00 09/28/18 08:59 09/01/18 08:43 Lorazepam (Ativan 2mg/ml 1ml) 0.5 mg Q4H PRN IV For Anxiety 08/28/18 18:30 09/03/18 18:29 Methylprednisolone Sodium Succinate (Solu-MEDROL) 60 mg Q24HRS IV 08/30/18 06:00 09/28/18 00:00 09/01/18 05:45 Nitroglycerin (Ntg) 0.4 mg Q5M X 3 DOSES PRN SL Prn Chest Pain 08/28/18 17:45 09/26/18 09:29 Ondansetron HCl (Zofran) 4 mg Q6H PRN IVP Nausea & Vomiting 08/28/18 18:30 09/26/18 18:29 Potassium Chloride (K-Dur) 40 meq ONCE ORAL 09/01/18 12:30 09/01/18 13:30 Promethazine HCl/ Codeine (Phenergan with Codeine) 5 ml Q6H PRN ORAL cough 08/28/18 18:30 09/26/18 18:29 09/01/18 05:46 Temazepam (Restoril) 15 mg HSPRN PRN ORAL Insomnia 08/28/18 21:00 09/04/18 20:59 08/31/18 22:36 Jw Bush MD Sep 01, 2018 13:10
[2018-09-01 14:13] LABS: BASOPHILS % (AUTO) 0.6 % (0.0-2.0); EOSINOPHILS % (AUTO) 0.2 % (0.0-3.0); HEMATOCRIT 41.9 % (37.0-47.0); HEMOGLOBIN 14.1 G/DL (12.0-16.0); LYMPHOCYTES % (AUTO) 10.3 % (20.0-45.0); MEAN CORPUSCULAR VOLUME 80 FL (80-99); MONOCYTES % (AUTO) 4.1 % (1.0-10.0); NEUTROPHILS % (AUTO) 84.9 % (45.0-75.0); PLATELET COUNT 524 K/UL (150-450); RED BLOOD COUNT 5.26 M/UL (4.20-5.40); RED CELL DISTRIBUTION WIDTH 13.1 % (11.6-14.8); WHITE BLOOD COUNT 13.8 K/UL (4.8-10.8)
[2018-09-01 14:26] LABS: ANION GAP 11 mmol/L (5-15); BLOOD UREA NITROGEN 20 mg/dL (7-18); CALCIUM 8.8 MG/DL (8.5-10.1); CARBON DIOXIDE 25 MMOL/L (21-32); CHLORIDE 106 MMOL/L (98-107); CREATININE 0.8 MG/DL (0.55-1.30); POTASSIUM 3.5 MMOL/L (3.5-5.1); SODIUM 142 MMOL/L (136-145)
[2018-09-01] MEDS: Albuterol/Ipratropium 3ml neb HHN PRN (15:10)
--- NOTE | 2018-09-01 15:14 | General Progress Note ---
Assessment/Plan Problem List: (1) SOB (shortness of breath) ICD Codes: R06.02 - Shortness of breath SNOMED: 937538487 (2) HTN (hypertension) ICD Codes: I10 - Essential (primary) hypertension SNOMED: 19423387 (3) UTI (urinary tract infection) ICD Codes: N39.0 - Urinary tract infection, site not specified SNOMED: 74109829 (4) Acute respiratory failure ICD Codes: J96.00 - Acute respiratory failure, unspecified whether with hypoxia or hypercapnia SNOMED: 87842675 (5) Status asthmaticus ICD Codes: J45.902 - Unspecified asthma with status asthmaticus SNOMED: 866129521 Qualifiers: Qualified Codes: J45.52 - Severe persistent asthma with status asthmaticus Status: stable, progressing Assessment/Plan: o2 pulm tx abx cbc bmp am pending endoscopy dc plan if clear Subjective Constitutional: Reports: weakness Allergies: Coded Allergies: MORPHINE (Verified Allergy, Severe, Shortness of Breath, 08/27/18) rash, swelling of tounge, and SOB All Systems: reviewed and negative except above Subjective o2nc calm Objective Last 24 Hour Vital Signs Date Time Temp Pulse Resp B/P (MAP) Pulse Ox O2 Delivery O2 Flow Rate FiO2 09/01/18 15:12 79 20 99 Nasal Cannula 2.0 28 09/01/18 15:10 76 18 95 Room Air 21 09/01/18 13:12 65 159/81 09/01/18 12:00 98.0 65 20 159/91 (113) 99 09/01/18 12:00 68 09/01/18 12:00 2.0 09/01/18 09:00 Nasal Cannula 2.0 09/01/18 08:43 135/95 09/01/18 08:35 76 20 98 Nasal Cannula 2.0 28 09/01/18 08:35 97 Nasal Cannula 2.0 28 09/01/18 08:00 61 09/01/18 08:00 2.0 09/01/18 08:00 97.9 77 18 135/115 (122) 100 09/01/18 05:46 79 155/111 09/01/18 04:00 2.0 09/01/18 04:00 98.6 79 19 155/111 (126) 97 09/01/18 04:00 56 09/01/18 00:00 57 09/01/18 00:00 2.0 09/01/18 00:00 98.5 71 19 150/110 (123) 98 08/31/18 22:36 78 162/125 08/31/18 21:00 2.0 08/31/18 21:00 Nasal Cannula 2.0 08/31/18 20:00 71 08/31/18 20:00 98.3 78 20 162/125 (137) 97 08/31/18 18:40 80 20 98 Nasal Cannula 2.0 28 08/31/18 18:40 97 Nasal Cannula 2.0 28 08/31/18 17:17 163/126 08/31/18 16:00 97.8 87 18 166/117 (133) 95 08/31/18 16:00 70 08/31/18 16:00 2.0 Intake and Output 08/31/18 09/01/18 19:00 07:00 Intake Total 680 ml Balance 680 ml Intake Oral 680 ml # Voids 1 2 Laboratory Tests 09/01/18 05:35: White Blood Count 14.6H, Red Blood Count 4.95, Hemoglobin 13.1, Hematocrit 39.3 , Mean Corpuscular Volume 79L, Mean Corpuscular Hemoglobin 26.4L, Mean Corpuscular Hemoglobin Concent 33.3, Red Cell Distribution Width 12.7, Platelet Count 470H, Mean Platelet Volume 5.0L, Neutrophils (%) (Auto) 77.1H, Lymphocytes (%) (Auto) 15.7L, Monocytes (%) (Auto) 6.3, Eosinophils (%) (Auto) 0.2, Basophils (%) (Auto) 0.8, Sodium Level 144, Potassium Level 3.3L, Chloride Level 107, Carbon Dioxide Level 28, Anion Gap 10, Blood Urea Nitrogen 19H, Creatinine 0.7, Estimat Glomerular Filtration Rate > 60, Glucose Level 117H, Calcium Level 8.4L 09/01/18 14:02: White Blood Count 13.8H, Red Blood Count 5.26, Hemoglobin 14.1, Hematocrit 41.9 , Mean Corpuscular Volume 80, Mean Corpuscular Hemoglobin 26.7L, Mean Corpuscular Hemoglobin Concent 33.6, Red Cell Distribution Width 13.1, Platelet Count 524H, Mean Platelet Volume 5.2L, Neutrophils (%) (Auto) 84.9H, Lymphocytes (%) (Auto) 10.3L, Monocytes (%) (Auto) 4.1, Eosinophils (%) (Auto) 0.2, Basophils (%) (Auto) 0.6, Sodium Level 142, Potassium Level 3.5, Chloride Level 106, Carbon Dioxide Level 25, Anion Gap 11, Blood Urea Nitrogen 20H, Creatinine 0.8, Estimat Glomerular Filtration Rate > 60, Glucose Level 152H, Calcium Level 8.8 Height (Feet): 5 Height (Inches): 4.00 Weight (Pounds): 198 General Appearance: lethargic EENT: normal ENT inspection Neck: normal alignment Cardiovascular: normal peripheral pulses, normal rate, regular rhythm Respiratory/Chest: chest wall non-tender, lungs clear, normal breath sounds Abdomen: normal bowel sounds, non tender, soft Extremities: normal inspection Edema: no edema noted Arm (L), no edema noted Arm (R), no edema noted Leg (L), no edema noted Leg (R), no edema noted Pedal (L), no edema noted Pedal (R), no edema noted Generalized Neurologic: responsive, motor weakness Skin: normal pigmentation, warm/dry Coy Conley DO Sep 01, 2018 15:14
[2018-09-01 16:00] VITALS: BP 110/69
--- NOTE | 2018-09-01 16:32 | Cardiac Electrophysiology PN ---
Assessment/Plan Assessment/Plan 1. Accelerated hypertension. On Cardizem 60 mg every 6 hours, Lisinopril 10 daily and p.r.n. clonidine. 2. Respiratory failure with severe asthma. Now off BiPAP. DALJIT Perez. 3. History of thyroidectomy, on levothyroxine. 4. Obesity. MARGA RN OK to DC Subjective Subjective No CP or SOB. DC in progress Objective Last 24 Hour Vital Signs Date Time Temp Pulse Resp B/P (MAP) Pulse Ox O2 Delivery O2 Flow Rate FiO2 09/01/18 15:12 79 20 99 Nasal Cannula 2.0 28 09/01/18 15:10 76 18 95 Room Air 21 09/01/18 13:12 65 159/81 09/01/18 12:00 98.0 65 20 159/91 (113) 99 09/01/18 12:00 68 09/01/18 12:00 2.0 09/01/18 09:00 Nasal Cannula 2.0 09/01/18 08:43 135/95 09/01/18 08:35 76 20 98 Nasal Cannula 2.0 28 09/01/18 08:35 97 Nasal Cannula 2.0 28 09/01/18 08:00 61 09/01/18 08:00 2.0 09/01/18 08:00 97.9 77 18 135/115 (122) 100 09/01/18 05:46 79 155/111 09/01/18 04:00 2.0 09/01/18 04:00 98.6 79 19 155/111 (126) 97 09/01/18 04:00 56 09/01/18 00:00 57 09/01/18 00:00 2.0 09/01/18 00:00 98.5 71 19 150/110 (123) 98 08/31/18 22:36 78 162/125 08/31/18 21:00 2.0 08/31/18 21:00 Nasal Cannula 2.0 08/31/18 20:00 71 08/31/18 20:00 98.3 78 20 162/125 (137) 97 08/31/18 18:40 80 20 98 Nasal Cannula 2.0 28 08/31/18 18:40 97 Nasal Cannula 2.0 28 08/31/18 17:17 163/126 Intake and Output 08/31/18 09/01/18 19:00 07:00 Intake Total 680 ml Balance 680 ml Intake Oral 680 ml # Voids 1 2 Laboratory Tests Test 09/01/18 05:35 09/01/18 14:02 White Blood Count 14.6 K/UL (4.8-10.8) H 13.8 K/UL (4.8-10.8) H Red Blood Count 4.95 M/UL (4.20-5.40) 5.26 M/UL (4.20-5.40) Hemoglobin 13.1 G/DL (12.0-16.0) 14.1 G/DL (12.0-16.0) Hematocrit 39.3 % (37.0-47.0) 41.9 % (37.0-47.0) Mean Corpuscular Volume 79 FL (80-99) L 80 FL (80-99) Mean Corpuscular Hemoglobin 26.4 PG (27.0-31.0) L 26.7 PG (27.0-31.0) L Mean Corpuscular Hemoglobin Concent 33.3 G/DL (32.0-36.0) 33.6 G/DL (32.0-36.0) Red Cell Distribution Width 12.7 % (11.6-14.8) 13.1 % (11.6-14.8) Platelet Count 470 K/UL (150-450) H 524 K/UL (150-450) H Mean Platelet Volume 5.0 FL (6.5-10.1) L 5.2 FL (6.5-10.1) L Neutrophils (%) (Auto) 77.1 % (45.0-75.0) H 84.9 % (45.0-75.0) H Lymphocytes (%) (Auto) 15.7 % (20.0-45.0) L 10.3 % (20.0-45.0) L Monocytes (%) (Auto) 6.3 % (1.0-10.0) 4.1 % (1.0-10.0) Eosinophils (%) (Auto) 0.2 % (0.0-3.0) 0.2 % (0.0-3.0) Basophils (%) (Auto) 0.8 % (0.0-2.0) 0.6 % (0.0-2.0) Sodium Level 144 MMOL/L (136-145) 142 MMOL/L (136-145) Potassium Level 3.3 MMOL/L (3.5-5.1) L 3.5 MMOL/L (3.5-5.1) Chloride Level 107 MMOL/L (98-107) 106 MMOL/L (98-107) Carbon Dioxide Level 28 MMOL/L (21-32) 25 MMOL/L (21-32) Anion Gap 10 mmol/L (5-15) 11 mmol/L (5-15) Blood Urea Nitrogen 19 mg/dL (7-18) H 20 mg/dL (7-18) H Creatinine 0.7 MG/DL (0.55-1.30) 0.8 MG/DL (0.55-1.30) Estimat Glomerular Filtration Rate > 60 mL/min (>60) > 60 mL/min (>60) Glucose Level 117 MG/DL (74-106) H 152 MG/DL (74-106) H Calcium Level 8.4 MG/DL (8.5-10.1) L 8.8 MG/DL (8.5-10.1) Objective HEAD AND NECK: No JVD. Status post thyroidectomy . LUNGS: Coarse rhonchi and wheezes. CARDIOVASCULAR: Regular S1-S2 ABDOMEN: Obese. EXTREMITIES: No pitting edema. Martell Mehta MD Sep 01, 2018 16:32
[2018-09-01 18:11] VITALS: BP 132/69
--- NOTE | 2018-09-02 12:45 | Discharge Summary ---
Discharge Summary Discharge Summary _ DATE OF ADMISSION: 08/27/2018 DATE OF DISCHARGE: 09/01/2018 DISCHARGED BY: Dr. Coy Conley CONSULTANTS: Dr. Martell Perez BRIEF HOSPITAL COURSE: Patient is a 48-year-old female, who lives at home, became weak and short of breath. Patient had been feeling sick for almost 5 days. She had a history of asthma. She had been wheezing and coughing. She reported subjective fevers. She denied chest pain. There was some vomiting after coughing. She complained of headache that is throbbing and worse with cough. Pain was 8 out of 10. She denied any cough swelling or edema. On evaluation at the ED, blood pressure was 149/105, pulse rate 97, RR 24, O2 saturation 96% on room air. She presented with significant respiratory distress. She was given nebulizer treatment. Blood work showed WBC 13.6. Hemoglobin and hematocrit were stable. Electrolytes were normal. Troponin was negative. ABG showed pH 7.4, PCO2 42, bicarb 26, base excess 0.9. Chest x-ray with poor inspiration, but no infiltrates. She continued to have significant respiratory distress. She was given IV Solu-Medrol, magnesium and epinephrine. She had improvement, however became dyspneic again and diaphoretic. Lung exam showed diminished sounds consistent with severe bronchospasm. She had stridor. She was placed on BiPAP. She was then given another dose of 0.3 mg IM epinephrine. She was then upgraded to ICU. Dr. Perez was consulted. She was placed on nebulizer treatments. She was given pulmonary supportive care. Patient presented with elevated blood pressure. At home, she was taking Coreg. But in view of patient's severe asthma, Coreg was discontinued by rn digestive. She was then placed on Cardizem and prn clonidine. She was eventually given lisinopril 10 mg daily. She was eventually taken off BiPAP. She was saturating well on nasal packing. ID was consulted. Patient was given Zosyn and Zithromax. Leukocytosis worsened , possibly due to steroid use. Blood culture did not isolate any growth. Urine culture with no growth. Zosyn was discontinued. She was started on ceftriaxone. Continued on Zithromax. Leukocytosis improved. Patient had less cough. Saturation was stable. Steroids were tapered. Sputum culture was negative. Patient was ordered discharge, patient complained of vaginal bleed. Stat labs were done. Blood work was stable. She was cleared for discharged home. FINAL DIAGNOSES: Acute respiratory failure requiring BiPAP, resolved Status asthmaticus Probable community-acquired pneumonia Accelerated hypertension Status post thyroidectomy on levothyroxine Obesity Possible UTI DISPOSITION: Patient was discharged home. DISCHARGE MEDICATIONS: Refer to Discharge Medication List. DISCHARGE INSTRUCTIONS: Follow-up in a week. I have been assigned to complete a discharge summary on this account, I was not involved with the patient's management. Therese Foley NP Sep 02, 2018 12:45
== END 2018-09-01 18:34 | disposition home or self-care (01) | DRG 141 ==
LOC: EMR 07:20 → 2W 07:23 → EDBEDREQ 07:30 → ICU 09:13 → 2E 08-28 18:30
PROC: 5A09457 Assistance with Respiratory Ventilation, 24-96 Consecutive Hours, Continuous Positive Airway Pressure (ICD-10-PCS; principal; 2018-08-27)
DX: J45.902 Unspecified asthma with status asthmaticus (principal); J96.00 Acute respiratory failure, unspecified whether with hypoxia or hypercapnia; J18.9 Pneumonia, unspecified organism; N39.0 Urinary tract infection, site not specified; E66.9 Obesity, unspecified; Z68.33 Body mass index [BMI] 33.0-33.9, adult; Z88.6 Allergy status to analgesic agent; I10 Essential (primary) hypertension; E89.0 Postprocedural hypothyroidism; Z85.850 Personal history of malignant neoplasm of thyroid; R51 Headache
CPT/HCPCS: 36415; 36600; 71045; 80048; 80053; 80198; 81003; 81025; 82550; 82803; 83605; 83880; 84443; 84484; 85007; 85025; 85610; 85730; 86703; 86705; 86709; 86803; 87040; 87070; 87081; 87086; 87205; 87340; 93005; 93306; 94640; 94660; 94664; 96361; 96365; 96372; 96375; 99291; J7620; J8499

== ENCOUNTER 2020-05-10 18:16 | Emergency (ER) | payer MEDICAID ==
[~2020-05-10] VITALS: Ht 152.4 cm; Wt 88.5 kg
[~2020-05-10 18:16] MED LIST changes: +BACTRIM DS TAB1 EAC1 ORAL; +CARVEDILOL12.5 MG ORAL; +MEDROL DOSEPAK4 MG ORAL; +NORVASC5 MG ORAL; +PHENERGAN25 M1 ORAL
[2020-05-10] MEDS ORDERED: HYDROmorphone 1mg/ml Carpuject IVP ONE (19:45)
--- NOTE | 2020-05-10 19:45 | NUR ---
pt aox3 c/o right lower back pain started last thursday. pt c/o frequent urination. pt states she has pmx kidney stone. pt v/s stable. pt in no distress. at this time . will continue to monitor pt very closely
--- NOTE | 2020-05-10 19:46 | NUR ---
pt medicated per may. pt connected to monitor
[2020-05-10 19:49] LABS: BASOPHILS % (AUTO) 1.1 % (0.0-2.0); EOSINOPHILS % (AUTO) 3.1 % (0.0-3.0); HEMATOCRIT 42.3 % (37.0-47.0); LYMPHOCYTES % (AUTO) 27.1 % (20.0-45.0); MEAN CORPUSCULAR VOLUME 82 FL (80-99); MONOCYTES % (AUTO) 5.4 % (1.0-10.0); NEUTROPHILS % (AUTO) 63.3 % (45.0-75.0); PLATELET COUNT 418 K/UL (150-450); RED BLOOD COUNT 5.18 M/UL (4.20-5.40); RED CELL DISTRIBUTION WIDTH 14.5 % (11.6-14.8); WHITE BLOOD COUNT 9.8 K/UL (4.8-10.8)
[2020-05-10 19:51] LABS: APPEARANCE,URINE SLIGHTLY CLOUDY; BILIRUBIN, URINE NEGATIVE (NEGATIVE); COLOR,URINE PALE YELLOW; GLUCOSE, URINE (UA) NEGATIVE (NEGATIVE); KETONES,URINE NEGATIVE (NEGATIVE); LEUKOCYTE ESTERASE ,URINE 2+ (NEGATIVE); NITRITE,URINE NEGATIVE (NEGATIVE); PH,URINE 6 (4.5-8.0); PROTEIN,URINE 2+ (NEGATIVE); UROBILINOGEN,URINE NORMAL MG/DL (0.0-1.0)
[2020-05-10 20:02] LABS: ANION GAP 8 mmol/L (5-15); BLOOD UREA NITROGEN 12 mg/dL (7-18); CALCIUM 9.6 MG/DL (8.5-10.1); CARBON DIOXIDE 29 MMOL/L (21-32); CHLORIDE 104 MMOL/L (98-107); CREATININE 0.9 MG/DL (0.55-1.30); POTASSIUM 3.3 MMOL/L (3.5-5.1); SODIUM 141 MMOL/L (136-145)
[2020-05-10 20:07] LABS: ALANINE AMINOTRANSFERASE 72 U/L (12-78); ALKALINE PHOSPHATASE 121 U/L (46-116); ASPARTATE AMINO TRANSFERASE 40 U/L (15-37); BILIRUBIN,TOTAL 0.4 MG/DL (0.2-1.0)
--- NOTE | 2020-05-10 20:10 | Emergency Room Report ---
History of Present Illness General Chief Complaint: Female Urogenital Problems Source: Patient Present Illness HPI 49 YO female presents to the ED c/o 12/23 in severity acute onset right flank pain since yesterday. Patient reports nausea. She reports she had vague right- sided abdominal pain that was much milder in severity the day after receiving maternal COVID-19 vaccine. Patient reports yesterday having acute exacerbation of her pain while sitting down. She reports nausea but denies vomiting. She denies constipation or diarrhea. She reports vaginal bleeding. She states that she has been getting her period monthly at the same time and states that she j ust finished her period on the seventh of this month. She denies history of fibroids. She reports history of thyroid cancer with Asthma, thyroidectomy, high blood pressure and diabetes. She denies fevers or chills. She denies cough, chest pain or shortness of breath. She denies blood in the stool or black tarry stools. She denies tobacco or ETOH use. Allergies: Coded Allergies: MORPHINE (Verified Allergy, Severe, Shortness of Breath, 08/27/18) rash, swelling of tounge, and SOB COVID-19 Screening Contact w/high risk pt: No Experienced COVID-19 symptoms?: No COVID-19 Testing performed RACEBOOK WRITER: No Patient History Past Medical History: DM, HTN, other - Thyroid cancer with thyroidectomy Past Surgical History: appy, other - Thyroidectomy Pertinent Family History: none Last Menstrual Period: 04/22/20 Now: No Reviewed Nursing Documentation: PMH: Agreed; PSxH: Agreed Nursing Documentation-PMH Past Medical History: No History, Except For Hx Hypertension: Yes Hx Cancer: Yes - thyroid Hx Gastrointestinal Problems: No Hx Cerebrovascular Accident: No - KIDNEY STONES Review of Systems All Other Systems: negative except mentioned in HPI Physical Exam Vital Signs Date Time Temp Pulse Resp B/P (MAP) Pulse Ox O2 Delivery O2 Flow Rate FiO2 05/10/20 19:00 98.8 85 18 184/112 (136) 94 Room Air Sp02 EP Interpretation: reviewed, normal General Appearance: no apparent distress, alert, GCS 15, non-toxic Head: normocephalic, atraumatic Eyes: bilateral eye normal inspection, bilateral eye PERRL ENT: hearing grossly normal, normal voice Neck: full range of motion Respiratory: lungs clear, normal breath sounds, speaking full sentences Cardiovascular #1: regular rate, rhythm, no edema Gastrointestinal: soft, non-distended, no guarding, no hernia, no pulsatile mass, tenderness - TTP in the RUQ, Right flank and LUQ, hepatomegaly, other - Decreased BS in all 4 quadrants. , overweight Rectal: deferred Genitourinary: normal inspection, no CVA tenderness, adnexa normal Musculoskeletal: normal range of motion, gait/station normal, non-tender Neurologic: alert, motor strength/tone normal, oriented x3, sensory intact, responsive, speech normal Psychiatric: judgement/insight normal Skin: no rash, normal color Medical Decision Making PA Attestation Dr. Wiggins is my supervising Physician whom patient management has been discussed with. Diagnostic Impression: Primary Impression: UTI (urinary tract infection) Qualified Codes: N30.01 - Acute cystitis with hematuria Additional Impressions: Renal mass, left Uterine mass ER Course 49 YO female presents to the ED c/o 12/23 in severity acute onset right flank pain since yesterday. Patient reports nausea. She reports she had vague right- sided abdominal pain that was much milder in severity the day after receiving maternal COVID-19 vaccine. Patient reports yesterday having acute exacerbation of her pain while sitting down. She reports nausea but denies vomiting. She denies constipation or diarrhea. She reports vaginal bleeding. She states that she has been getting her period monthly at the same time and states that she just finished her period on the seventh of this month. She denies history of fibroids. She reports history of thyroid cancer with Asthma, thyroidectomy, high blood pressure and diabetes. She denies fevers or chills. She denies cough, chest pain or shortness of breath. She denies blood in the stool or black tarry stools. She denies tobacco or ETOH use. Ddx considered but are not limited to Diverticulitis, acute appendicitis, diarrhea,UC, PUD, GE, pancreatitis, gallstone, GI, renal calculi, uterine fibroid ovarian torsion, ectopic , PID tubo-ovarian abscess, cancer just to name a few Vital signs: are WNL, pt. is afebrile H&PE are most consistent with highly suspicious renal stone on the right side. No evidence to suggest acute abdomen on exam. Abdomen is soft. Bowel sounds are hypoactive in all 4 quadrants but this could be secondary to being diabetic. ORDERS: -CBC, CMP, LIPASE: Unremarkable -UA: Moderate increase in white blood cells, presence of RBCs and some bacteria -CT Abdomen and Pelvis without Contrast: Renal mass, pelvic cystic structure, and some right hydronephrosis without stones. ED INTERVENTIONS: -1g Dilaudid IV -IV zofran 4mg. -1g Rocephin IV -1 Liter NS IV -Glen p.o. -GI Cocktail PO Patient is able to tolerate oral medications and fluids. Thoroughly explained results of CT imaging with the patient and emphasized on need for more thorough evaluation due to abnormal findings such as a renal mass and cystic mass in the pelvis area. Discussed with patient that until further evaluation is performed cancer is a possibility, and can only be determined with further evaluation. I discussed with patient that this is something that will be performed as an outpatient however it is an urgent need for follow-up in order to identify any serious disease as soon as possible. The patient was given a copy of her official CT radiology report with pertinent findings highlighted for her. She had opportunity to ask any questions or request any further clarification. The patient verbalized her understanding and agreement with this urgent outpatient follow-up plan. -I do not identify an emergent condition at this time. With current presentation, pt. is stable for close outpatient follow up and conservative treatment. D/w pt. to return promptly to ED with worsening or new symptoms.- Pt. verbalizes' understanding and agreement with proposed treatment plan. DISCHARGE: At this time pt. is stable for d/c to home. Will provide printed pat ient care instructions, and any necessary prescriptions. Care plan and follow up instructions have been discussed with the patient prior to discharge. Labs Test 05/10/20 19:20 White Blood Count 9.8 K/UL (4.8-10.8) Red Blood Count 5.18 M/UL (4.20-5.40) Hemoglobin 14.0 G/DL (12.0-16.0) Hematocrit 42.3 % (37.0-47.0) Mean Corpuscular Volume 82 FL (80-99) Mean Corpuscular Hemoglobin 27.0 PG (27.0-31.0) Mean Corpuscular Hemoglobin Concent 33.0 G/DL (32.0-36.0) Red Cell Distribution Width 14.5 % (11.6-14.8) Platelet Count 418 K/UL (150-450) Mean Platelet Volume 6.3 FL (6.5-10.1) Neutrophils (%) (Auto) 63.3 % (45.0-75.0) Lymphocytes (%) (Auto) 27.1 % (20.0-45.0) Monocytes (%) (Auto) 5.4 % (1.0-10.0) Eosinophils (%) (Auto) 3.1 % (0.0-3.0) Basophils (%) (Auto) 1.1 % (0.0-2.0) Urine Color Pale yellow Urine Appearance Slightly cloudy Urine pH 6 (4.5-8.0) Urine Specific [place] 1.015 (1.005-1.035) Urine Protein 2+ (NEGATIVE) Urine Glucose (UA) Negative (NEGATIVE) Urine Ketones Negative (NEGATIVE) Urine Blood 5+ (NEGATIVE) Urine Nitrite Negative (NEGATIVE) Urine Bilirubin Negative (NEGATIVE) Urine Urobilinogen Normal MG/DL (0.0-1.0) Urine Leukocyte Esterase 2+ (NEGATIVE) Urine RBC 15-20 /HPF (0 - 2) Urine WBC 10-15 /HPF (0 - 2) Urine Squamous Epithelial Cells Few /LPF (NONE/OCC) Urine Bacteria Few /HPF (NONE) Sodium Level 141 MMOL/L (136-145) Potassium Level 3.3 MMOL/L (3.5-5.1) Chloride Level 104 MMOL/L (98-107) Carbon Dioxide Level 29 MMOL/L (21-32) Anion Gap 8 mmol/L (5-15) Blood Urea Nitrogen 12 mg/dL (7-18) Creatinine 0.9 MG/DL (0.55-1.30) Estimat Glomerular Filtration Rate > 60 mL/min (>60) Glucose Level 112 MG/DL (74-106) Calcium Level 9.6 MG/DL (8.5-10.1) Total Bilirubin 0.4 MG/DL (0.2-1.0) Aspartate Amino Transf (AST/SGOT) 40 U/L (15-37) Alanine Aminotransferase (ALT/SGPT) 72 U/L (12-78) Alkaline Phosphatase 121 U/L (46-116) Total Protein 8.2 G/DL (6.4-8.2) Albumin 4.0 G/DL (3.4-5.0) Globulin 4.2 g/dL Albumin/Globulin Ratio 1.0 (1.0-2.7) Lipase 228 U/L (73-393) CT/MRI/US Diagnostic Results CT/MRI/US Diagnostic Results : Imaging Test Ordered: -CT Abdomen and Pelvis without Contrast Impression " IMPRESSION: No acute abdominopelvic process to explain symptoms. Colonic diverticula without diverticulitis. Appendectomy. 1.6 cm left renal lesion. Recommend correlation with nonemergent ultrasound as a solid tumor is not excluded. 3 x 0.5 cm cystic lesion to the leftward vagina. Suspect Bartholin cyst. Hepatic steatosis." --Per official radiology report- Please see report for specific details. Last Vital Signs Date Time Temp Pulse Resp B/P (MAP) Pulse Ox O2 Delivery O2 Flow Rate FiO2 05/10/20 19:00 98.8 85 18 184/112 (136) 94 Room Air Status: improved Disposition: HOME, SELF-CARE Condition: Stable Scripts Hydrocodone/Acetaminophen 7.5-325* (HYDROCODON-ACETAMINOPH 7.5-325*) 1 Each Tablet 1 TAB ORAL Q6H, #12 TAB 0 Refills Prov: Zohreh Amaro 05/10/20 Famotidine* (Pepcid 20mg tablet*) 20 Mg Tablet 20 MG ORAL TWICE A DAY for Gerd for 7 Days, #14 TAB 0 Refills Prov: Zohreh Amaro 05/10/20 Levofloxacin (LEVOFLOXACIN*) 500 Mg Tablet 500 MG ORAL DAILY for 7 Days, #7 TAB Prov: Zohreh Amaro 05/10/20 Referrals: NOT CHOSEN IPA/MD,REFERRING (PCP) Patient Instructions: Urinary Tract Infection Additional Instructions: Take medications as directed. Do not drink alcohol, drive, or operate heavy machinery while taking Glen as this may cause drowsiness. Follow up with a Primary Care Provider in 3-5 days, even if your symptoms have resolved. Must follow-up with renal specialist as well as critical care clinical nurse specialist to evaluate for renal mass of the left kidney as well as cystic structure in the left vaginal area. These need to be further evaluated in order to exclude cancer. --Please review list of primary care clinics, if you do not already have a primary care provider Return sooner to ED if new symptoms occur, or current symptoms become worse. - Please note that this Emergency Department Report was dictated using [employer] concentrator technology software, occasionally this can lead to erroneous entry secondary to interpretation by the dictation equipment. Zohreh Amaro May 10, 2020 20:10
--- NOTE | 2020-05-10 20:12 | NUR ---
pt back from ct scan. connected back to monitor. medicated per may. will continue to monitor pt
[2020-05-10] MEDS ORDERED: cefTRIAXone 1 GM in NS 55 ML IVPB ONE (20:15)
[2020-05-10 20:31] VITALS: BP 133/89
--- NOTE | 2020-05-10 20:45 | Diagnostic Imaging Report ---
EXAM: CT Abdomen and Pelvis Without Intravenous Contrast CLINICAL HISTORY: PAIN TECHNIQUE: Axial computed tomography images of the abdomen and pelvis without intravenous contrast. CTDI is 11.2 mGy and DLP is 569.3 mGy-cm. One or more of the following dose reduction techniques were used: automated exposure control, adjustment of the mA and/or kV according to patient size, use of iterative reconstruction technique. COMPARISON: No relevant prior studies available. FINDINGS: The lung bases demonstrate no acute infiltrate. Hypodense liver parenchyma, consistent with steatosis/fatty infiltration. The biliary tree, pancreas, spleen, and adrenal glands are unremarkable for noncontrast technique. There is a 1.6 cm exophytic lesion to the posterior mid left kidney (series 4, image 50). Density is not that of a simple cyst. Recommend nonemergent ultrasound to further assess as a solid tumor is not excluded. Colonic diverticula without diverticulitis. There is no bowel obstruction or perforation. Status post appendectomy. There is a 3 x 0. 5 cm fluid density mass along the leftward vagina extending to the introitus. Suspect Bartholin cyst. No clear adnexal mass. No abdominal aortic aneurysm. No acute fracture. IMPRESSION: No acute abdominopelvic process to explain symptoms. Colonic diverticula without diverticulitis. Appendectomy. 1.6 cm left renal lesion. Recommend correlation with nonemergent ultrasound as a solid tumor is not excluded. 3 x 0.5 cm cystic lesion to the leftward vagina. Suspect Bartholin cyst. Hepatic steatosis.
[2020-05-10] MEDS ORDERED: HYDROCODON-ACE1 EA16 ORAL (21:08)
[2020-05-10] MEDS ORDERED: LEVOFLOXACIN500 MG ORAL (21:08)
[2020-05-10] MEDS ORDERED: FAMOTIDINE20 MG ORAL (21:08)
[2020-05-10] MEDS ORDERED: Lidocaine 2% Visc 15ml soln ORAL ONE (21:15)
[2020-05-10] MEDS ORDERED: HYDROcodone/Acetamin 7.5/325 tab ORAL ONE (21:15)
[2020-05-10] MEDS ORDERED: Mylanta II UD 30ml ORAL ONE (21:15)
[2020-05-10 21:29] VITALS: BP 129/83
--- NOTE | 2020-05-10 21:29 | NUR ---
pt given and understands dsicharge instructions. 18g to rac discontinued. pt ambulatory out w steady gait
== END 2020-05-10 21:31 | disposition home or self-care (01) ==
LOC: EMR 19:58
DX: N30.01 Acute cystitis with hematuria (principal); N28.89 Other specified disorders of kidney and ureter; N85.8 Other specified noninflammatory disorders of uterus; E11.9 Type 2 diabetes mellitus without complications; I10 Essential (primary) hypertension; Z98.890 Other specified postprocedural states; Z87.442 Personal history of urinary calculi; Z88.5 Allergy status to narcotic agent
CPT/HCPCS: 36415; 74176; 80053; 81003; 83690; 85025; 87086; 96361; 96365; 96375; J0696; J1170; J2405; J7030; Z7502; 99284